=== PATIENT | male | born 1970 | race Caucasian/White ===

== ENCOUNTER 2018-10-14 08:39 | Emergency (ER) | payer OTHER ==
[~2018-10-14] VITALS: Ht 182.9 cm; Wt 77.1 kg
--- OUTSIDE RECORDS SUMMARY | 2018-10-14 08:42 | XMS REPORT | Clinical Summary ---
Author Author KALIN Lindsey ShellSt. Luke'[facility] CenterHealthyCh[facility] Organization [facility] Pinterest [facility] Address Unknown Phone Unavailable Care Team Providers Care [employer] Name Role Phone Alexx Brown PCP Allergies Comments Active Allergy Reactions Severity Noted Date Heparin 10/07/2017 HIT Heparin Analogues Other (See 10/08/2017 Comments) Medications End Date Status Medication Sig Dispensed Refills Start Date Active apixaban (ELIQUIS) 5 mg Take 5 mg by 0 Tab tablet mouth 2 (two) times daily. Active sacubitril-valsartan Take 1 tablet 0 (ENTRESTO) 24-26 mg Tab by mouth 2 (two) times daily. Active carvedilol (COREG) 3.125 Take 3.125 mg 0 MG tablet by mouth 2 (two) times daily with breakfast and dinner. Active esomeprazole (NEXIUM) 40 Take 40 mg by 0 MG capsule mouth daily. Active thiamine (VITAMIN B-1) Take 100 mg 0 100 MG tablet by mouth daily. Active diphenhydrAMINE Take 50 mg by 0 (BENADRYL) 25 mg tablet mouth 2 (two) times daily . Active buprenorphine-naloxone Place under 0 (SUBOXONE) 8-2 mg Film the tongue 3 (three) times daily. Active dextroamphetamine-ampheta Take 30 mg by 0 mine (ADDERALL XR) 30 MG mouth 2 (two) 24 hr capsule times daily. Active bumetanide (BUMEX) 1 MG Take 1 mg by 0 tablet mouth 2 (two) times daily. Active digoxin (LANOXIN) 0.25 MG Take 250 mcg 0 tablet by mouth daily. Active HYDROcodone-acetaminophen Take 1 tablet 0 (NORCO 5-325) 5-325 mg by mouth per tablet every 6 (six) hours as needed for Pain. 12/31/2017 Discontinued aspirin 81 MG EC tablet Take 81 mg by 0 mouth daily. 03/07/2018 Discontinued ALPRAZolam (XANAX) 0.25 Take 0.25 mg 0 MG tablet by mouth every night as needed for Anxiety. Active Problems Patient Care Coordination Note PT ID HPI PAST MEDICAL HISTORY PAST SURGICAL HISTORY SOCIAL HISTORY FAMILY HISTORY ALLERGIES MEDICATIONS PERTINENT TESTS/RESULTS ASSESSMENT/PLAN Problem Noted Date Acute on chronic systolic heart failure 10/10/2017 Leg DVT (deep venous thromboembolism), chronic, left 10/10/2017 Normocytic anemia 10/10/2017 Hypokalemia 10/10/2017 Acute kidney injury 10/10/2017 ADHD 10/10/2017 Acute respiratory insufficiency 10/10/2017 CHF (congestive heart failure) 10/08/2017 Encounters Care Team Description Date Type Specialty Raissa Wilson 06/06/2018 Documentation Transplant Jose R Bernard MD Fatigue, unspecified type (Primary Dx); Chronic systolic congestive heart failure (HCC); Normocytic anemia; Hypokalemia 03/07/2018 Office Visit Transplant 03/07/2018 Orders Only General Internal Medicine WilsonRaissa hrarell R 03/06/2018 Documentation Transplant Wilson, Elham 02/13/2018 Documentation Transplant WilsonRaissa harrell R 02/10/2018 Documentation Transplant Madiha Francisco Carlitos 01/16/2018 Abstract Transplant Amos Saavedra RN Follow-up 01/08/2018 Telephone Transplant Wilson Elham 01/06/2018 Documentation Transplant Amos Saavedra RN Follow-up 01/02/2018 Telephone Transplant Jose R Bernard MD Acute kidney injury (HCC) 12/31/2017 Office Visit Transplant Jose R Bernard MD Dilated cardiomyopathy (HCC); Systolic congestive heart failure (HCC) 12/31/2017 Hospital Cardiology Encounter Jose R Bernard MD Dilated cardiomyopathy (HCC) 12/31/2017 Hospital Cardiology Encounter Jose R Bernard MD Dilated cardiomyopathy (HCC); Systolic congestive heart failure (HCC) 12/31/2017 Hospital Cardiology Encounter Jose R Bernard MD Manson, Melissa J, [facility] Hazel Mayes, Amos Kirkland, Hazel Bowles, REGULATORY AFFAIRS INTERN Catia Matos, RD Kristel Magana Dilated cardiomyopathy (HCC); Systolic congestive heart failure (HCC) 12/31/2017 Office Visit Transplant 12/31/2017 Orders Only General Internal Medicine Amos Saavedra, SHARATH 12/31/2017 Abstract Transplant Hazel Parker, REGULATORY AFFAIRS INTERN 12/31/2017 Social Work Transplant Jose R Bernard MD 12/30/2017 Outside Orders Jose R Bernard MD Dilated cardiomyopathy (HCC); Systolic congestive heart failure, unspecified congestive heart failure chronicity (HCC) 11/29/2017 Hospital Respiratory Therapy Encounter Jose R Bernrad MD Dilated cardiomyopathy (HCC); Systolic congestive heart failure, unspecified congestive heart failure chronicity (HCC) 11/29/2017 Hospital Respiratory Therapy Encounter Jose R Bernard MD Chronic systolic congestive heart failure (HCC); Normocytic anemia; Hypokalemia 11/26/2017 Office Visit Transplant 11/26/2017 Orders Only General Internal Medicine Evelyn Pearza RN Chronic systolic congestive heart failure (HCC) (Primary Dx); Leg DVT (deep venous thromboembolism), chronic, left (HCC); Hypokalemia; Normocytic anemia 11/25/2017 Orders Only Transplant Jose R Bernard MD R CATH & BIOPSY 11/06/2017 Surgery Jose R Bernard MD Acute on chronic combined systolic and diastolic congestive heart failure (HCC) 11/06/2017 Hospital Encounter Jose R Bernard MD 11/06/2017 Orders Only Transplant Amos Saavedra, SHARATH Follow-up 10/23/2017 Telephone Transplant after 10/13/2017 Social History Date Tobacco Use Types Packs/Day Years Used Never Smoker Smokeless Tobacco: Never Used Tobacco Cessation: Counseling Given: No Alcohol Use Drinks/Week oz/Week Comments Yes occassionally Sex Assigned at Date Recorded Not on file Industry Job Start Date Occupation Not on file Not on file Not on file Travel End Travel History Travel Start No recent travel history available. Last Filed Vital Signs Time Taken Vital Sign Reading 03/07/2018 1:07 PM CDT Blood Pressure 120/77 03/07/2018 1:07 PM CDT Pulse 92 03/07/2018 1:07 PM CDT Temperature 36.3 C (97.3 F) 03/07/2018 1:07 PM CDT Respiratory Rate 16 03/07/2018 1:07 PM CDT Oxygen Saturation 98% - Inhaled Oxygen - Concentration 03/07/2018 1:07 PM CDT Weight 76.5 kg (168 lb 9.6 oz) 03/07/2018 1:07 PM CDT Height 175.3 cm (5' 9") 03/07/2018 1:07 PM CDT Body Mass Index 24.9 Plan of Treatment Health Maintenance Due Date Last Done Comments INFLUENZA VACCINE 06/09/2018 Procedures Comments Procedure Name Priority Date/Time Associated Diagnosis CORTISOL Routine 03/07/2018 Chronic systolic 3:27 PM CDT congestive heart failure (HCC) Fatigue, unspecified type VITAMIN B12 AND FOLATE STAT 03/07/2018 Chronic systolic 3:27 PM CDT congestive heart failure (HCC) Fatigue, unspecified type IRON, SERUM STAT 03/07/2018 Chronic systolic 3:27 PM CDT congestive heart failure (HCC) Fatigue, unspecified type CBC W/PLT COUNT & AUTO STAT 03/07/2018 Chronic systolic DIFFERENTIAL 1:16 PM CDT congestive heart failure (HCC) Normocytic anemia B-TYPE NATRIURETIC FACTOR STAT 03/07/2018 Chronic systolic (BNP) 1:16 PM CDT congestive heart failure (HCC) BASIC METABOLIC PANEL (7) STAT 03/07/2018 Chronic systolic 1:16 PM CDT congestive heart failure (HCC) Hypokalemia CBC W/PLT COUNT & AUTO STAT 03/07/2018 Chronic systolic DIFFERENTIAL 1:16 PM CDT congestive heart failure (HCC) Normocytic anemia ECG 12-LEAD Routine 03/07/2018 1:13 PM CDT Procedure Note - Interface, External Ris In - 03/07/2018 3:10 PM CDT Ventricula r Rate 91 BPM Atrial Rate 91 BPM P-R Interval 138 ms QRS Duration 98 ms Q-T Interval 408 ms QTC Calculatio n(Bazett) 501 ms P [place] 21 degrees R Cherokee -4 degrees T Cherokee 98 degrees Normal sinus rhythm Moderate voltage criteria for LVH, may be normal variant Nonspecifi c T wave abnormalit y Prolonged QT Abnormal ECG When compared with ECG of 8 15:26, T wave inversion no longer evident in Inferior leads QT has lengthened ECG 12-LEAD Routine 03/07/2018 Chronic systolic 1:13 PM CDT congestive heart failure (HCC) MAXIMAL VO2 CARDIOPULM STAT 01/08/2018 Dilated cardiomyopathy TEST - SLMT 1:08 PM CDT (HCC) Systolic congestive heart failure (HCC) TRANSFUSION SERVICE 01/01/2018 REPORT - SCAN 5:45 PM CDT PERIPHERAL VASCULAR 12/31/2017 REPORT - SCAN 6:20 PM CDT ARTERIAL DOPPLER LEGS Routine 12/31/2017 Dilated cardiomyopathy BILATERAL 5:15 PM CDT (HCC) Systolic congestive heart failure (HCC) ECG 12-LEAD Routine 12/31/2017 3:26 PM CDT Procedure Note - Interface, External Ris In - 12/31/2017 4:03 PM CDT Ventricula r Rate 77 BPM Atrial Rate 77 BPM P-R Interval 150 ms QRS Duration 104 ms Q-T Interval 384 ms QTC Calculatio n(Bazett) 434 ms P [place] 34 degrees R Cherokee 0 degrees T Cherokee 146 degrees Normal sinus rhythm Left ventricula r hypertroph y with repolariza tion abnormalit y Abnormal ECG When compared with ECG of 8 14:41, No significan t change was found ECG 12-LEAD Routine 12/31/2017 Dilated cardiomyopathy 3:26 PM CDT (HCC) Systolic congestive heart failure (HCC) CBC W/PLT COUNT & AUTO Routine 12/31/2017 Dilated cardiomyopathy DIFFERENTIAL 3:02 PM CDT (HCC) Systolic congestive heart failure (HCC) DIRECT AHG (DEZ)/DIRECT Routine 12/31/2017 Dilated cardiomyopathy YANELY 3:02 PM CDT (HCC) Systolic congestive heart failure (HCC) BLOOD TYPING, AUTOMATED Routine 12/31/2017 Dilated cardiomyopathy 3:02 PM CDT (HCC) Systolic congestive heart failure (HCC) RETICULOCYTE COUNT Routine 12/31/2017 Dilated cardiomyopathy 3:02 PM CDT (HCC) Systolic congestive heart failure (HCC) CBC W/PLT COUNT & AUTO Routine 12/31/2017 Dilated cardiomyopathy DIFFERENTIAL 3:02 PM CDT (HCC) Systolic congestive heart failure (HCC) B-TYPE NATRIURETIC FACTOR Routine 12/31/2017 Dilated cardiomyopathy (BNP) 3:02 PM CDT (HCC) Systolic congestive heart failure (HCC) HEPATITIS B CORE Routine 12/31/2017 Dilated cardiomyopathy ANTIBODY, IGM 3:01 PM CDT (HCC) Systolic congestive heart failure (HCC) FLOW PRA CLASS II WITH Routine 12/31/2017 Dilated cardiomyopathy REFLEX TO ANTIBODY 3:01 PM CDT (HCC) SPECIFICITY Systolic congestive heart failure (HCC) FLOW PRA CLASS I WITH Routine 12/31/2017 Dilated cardiomyopathy REFLEX TO ANTIBODY 3:01 PM CDT (HCC) SPECIFICITY Systolic congestive heart failure (HCC) VARICELLA ZOSTER Routine 12/31/2017 Dilated cardiomyopathy ANTIBODY, IGG 3:01 PM CDT (HCC) Systolic congestive heart failure (HCC) TOXOPLASMA GONDII Routine 12/31/2017 Dilated cardiomyopathy ANTIBODY, IGM 3:01 PM CDT (HCC) Systolic congestive heart failure (HCC) TOXOPLASMA GONDII Routine 12/31/2017 Dilated cardiomyopathy ANTIBODY, IGG 3:01 PM CDT (HCC) Systolic congestive heart failure (HCC) RPR Routine 12/31/2017 Dilated cardiomyopathy 3:01 PM CDT (HCC) Systolic congestive heart failure (HCC) HERPES VIRUS ANTIBODY, Routine 12/31/2017 Dilated cardiomyopathy IGM 3:01 PM CDT (HCC) Systolic congestive heart failure (HCC) HERPES VIRUS ANTIBODY, Routine 12/31/2017 Dilated cardiomyopathy IGG 3:01 PM CDT (HCC) Systolic congestive heart failure (HCC) EBV ANTIBODY, IGM Routine 12/31/2017 Dilated cardiomyopathy 3:01 PM CDT (HCC) Systolic congestive heart failure (HCC) EBV ANTIBODY, IGG Routine 12/31/2017 Dilated cardiomyopathy 3:01 PM CDT (HCC) Systolic congestive heart failure (HCC) CYTOMEGALOVIRUS ANTIBODY, Routine 12/31/2017 Dilated cardiomyopathy IGM 3:01 PM CDT (HCC) Systolic congestive heart failure (HCC) CYTOMEGALOVIRUS ANTIBODY, Routine 12/31/2017 Dilated cardiomyopathy IGG 3:01 PM CDT (HCC) Systolic congestive heart failure (HCC) VITAMIN D, 25-HYDROXY Routine 12/31/2017 Dilated cardiomyopathy 3:01 PM CDT (HCC) Systolic congestive heart failure (HCC) URIC ACID Routine 12/31/2017 Dilated cardiomyopathy 3:01 PM CDT (HCC) Systolic congestive heart failure (HCC) TSH Routine 12/31/2017 Dilated cardiomyopathy 3:01 PM CDT (HCC) Systolic congestive heart failure (HCC) TRANSFERRIN Routine 12/31/2017 Dilated cardiomyopathy 3:01 PM CDT (HCC) Systolic congestive heart failure (HCC) T4, FREE Routine 12/31/2017 Dilated cardiomyopathy 3:01 PM CDT (HCC) Systolic congestive heart failure (HCC) PSA Routine 12/31/2017 Dilated cardiomyopathy 3:01 PM CDT (HCC) Systolic congestive heart failure (HCC) PREALBUMIN Routine 12/31/2017 Dilated cardiomyopathy 3:01 PM CDT (HCC) Systolic congestive heart failure (HCC) PHOSPHORUS Routine 12/31/2017 Dilated cardiomyopathy 3:01 PM CDT (HCC) Systolic congestive heart failure (HCC) MAGNESIUM Routine 12/31/2017 Dilated cardiomyopathy 3:01 PM CDT (HCC) Systolic congestive heart failure (HCC) LIPASE Routine 12/31/2017 Dilated cardiomyopathy 3:01 PM CDT (HCC) Systolic congestive heart failure (HCC) LACTATE DEHYDROGENASE Routine 12/31/2017 Dilated cardiomyopathy (LDH) 3:01 PM CDT (HCC) Systolic congestive heart failure (HCC) IRON, SERUM Routine 12/31/2017 Dilated cardiomyopathy 3:01 PM CDT (HCC) Systolic congestive heart failure (HCC) HEPATITIS A ANTIBODY, IGM Routine 12/31/2017 Dilated cardiomyopathy 3:01 PM CDT (HCC) Systolic congestive heart failure (HCC) HEPATITIS A ANTIBODY, IGG Routine 12/31/2017 Dilated cardiomyopathy 3:01 PM CDT (HCC) Systolic congestive heart failure (HCC) HEPATIC FUNCTION PANEL Routine 12/31/2017 Dilated cardiomyopathy 3:01 PM CDT (HCC) Systolic congestive heart failure (HCC) GAMMA GLUTAMYL Routine 12/31/2017 Dilated cardiomyopathy TRANSFERASE (GGT) 3:01 PM CDT (HCC) Systolic congestive heart failure (HCC) CREATININE Routine 12/31/2017 Dilated cardiomyopathy 3:01 PM CDT (HCC) Systolic congestive heart failure (HCC) BASIC METABOLIC PANEL (7) Routine 12/31/2017 Dilated cardiomyopathy 3:01 PM CDT (HCC) Systolic congestive heart failure (HCC) AMYLASE Routine 12/31/2017 Dilated cardiomyopathy 3:01 PM CDT (HCC) Systolic congestive heart failure (HCC) HEPATITIS B E ANTIGEN Routine 12/31/2017 Dilated cardiomyopathy 3:00 PM CDT (HCC) Systolic congestive heart failure (HCC) PT/APTT Routine 12/31/2017 Dilated cardiomyopathy 2:59 PM CDT (HCC) Systolic congestive heart failure (HCC) URINALYSIS W/ MICROSCOPIC Routine 12/31/2017 Dilated cardiomyopathy 12:58 PM CDT (HCC) Systolic congestive heart failure (HCC) DRUG SCREEN, URINE, Routine 12/31/2017 Dilated cardiomyopathy COMPREHENSIVE 12:58 PM CDT (HCC) Systolic congestive heart failure (HCC) PULMONARY FUNCTION - SCAN 12/02/2017 8:12 AM CDT DLCO (SINGLE BREATH Routine 11/29/2017 Dilated cardiomyopathy DIFFUSION) 10:04 AM CDT (HCC) Systolic congestive heart failure, unspecified congestive heart failure chronicity (HCC) SPIROMETRY Routine 11/29/2017 Dilated cardiomyopathy 10:04 AM CDT (HCC) Systolic congestive heart failure, unspecified congestive heart failure chronicity (HCC) CBC W/PLT COUNT & AUTO STAT 11/26/2017 Chronic systolic DIFFERENTIAL 2:44 PM CDT congestive heart failure (HCC) Normocytic anemia TSH/FREE T4 IF INDICATED STAT 11/26/2017 Chronic systolic 2:44 PM CDT congestive heart failure (HCC) MAGNESIUM STAT 11/26/2017 Chronic systolic 2:44 PM CDT congestive heart failure (HCC) HEMOGLOBIN A1C AP Routine 11/26/2017 Chronic systolic 2:44 PM CDT congestive heart failure (HCC) PREALBUMIN STAT 11/26/2017 Chronic systolic 2:44 PM CDT congestive heart failure (HCC) URIC ACID STAT 11/26/2017 Chronic systolic 2:44 PM CDT congestive heart failure (HCC) PROTHROMBIN TIME/INR STAT 11/26/2017 Chronic systolic 2:44 PM CDT congestive heart failure (HCC) LIPID PANEL STAT 11/26/2017 Chronic systolic 2:44 PM CDT congestive heart failure (HCC) HEPATIC FUNCTION PANEL STAT 11/26/2017 Chronic systolic 2:44 PM CDT congestive heart failure (HCC) B-TYPE NATRIURETIC FACTOR STAT 11/26/2017 Chronic systolic (BNP) 2:44 PM CDT congestive heart failure (HCC) BASIC METABOLIC PANEL (7) STAT 11/26/2017 Chronic systolic 2:44 PM CDT congestive heart failure (HCC) Hypokalemia CBC W/PLT COUNT & AUTO STAT 11/26/2017 Chronic systolic DIFFERENTIAL 2:44 PM CDT congestive heart failure (HCC) Normocytic anemia ECG 12-LEAD Routine 11/26/2017 2:41 PM CDT Procedure Note - Interface, External Ris In - 11/26/2017 4:10 PM CDT Ventricula r Rate 76 BPM Atrial Rate 76 BPM P-R Interval 168 ms QRS Duration 104 ms Q-T Interval 346 ms QTC Calculatio n(Bazett) 389 ms P [place] 17 degrees R Cherokee 13 degrees T [place] 182 degrees Normal sinus rhythm Left ventricula r hypertroph y with repolariza tion abnormalit y Abnormal ECG When compared with ECG of 8 18:41, QT has shortened ECG 12-LEAD Routine 11/26/2017 Chronic systolic 2:41 PM CDT congestive heart failure (HCC) CARDIAC CATH REPORT - 11/10/2017 SCAN 4:31 PM LEAD INJECTION MOLD TECHNICIAN TISSUE EXAM AP Routine 11/06/2017 7:57 PM LEAD INJECTION MOLD TECHNICIAN R CATH & BIOPSY 11/06/2017 CHF 4:52 PM LEAD INJECTION MOLD TECHNICIAN Case Notes POP6. 838mGy CBC W/PLT COUNT & AUTO STAT 11/06/2017 DIFFERENTIAL 1:23 PM LEAD INJECTION MOLD TECHNICIAN CBC W/PLT COUNT & AUTO STAT 11/06/2017 DIFFERENTIAL 1:23 PM LEAD INJECTION MOLD TECHNICIAN BASIC METABOLIC PANEL (7) STAT 11/06/2017 1:23 PM LEAD INJECTION MOLD TECHNICIAN B-TYPE NATRIURETIC FACTOR STAT 11/06/2017 (BNP) 1:23 PM LEAD INJECTION MOLD TECHNICIAN LIPID PANEL Routine 11/06/2017 1:23 PM LEAD INJECTION MOLD TECHNICIAN HEPATIC FUNCTION PANEL Routine 11/06/2017 1:23 PM LEAD INJECTION MOLD TECHNICIAN RHYTHM STRIP - SCAN 10/23/2017 11:11 AM LEAD INJECTION MOLD TECHNICIAN CARDIAC CATH REPORT - 10/14/2017 SCAN 9:30 PM LEAD INJECTION MOLD TECHNICIAN RHYTHM STRIP - SCAN 10/14/2017 11:00 AM LEAD INJECTION MOLD TECHNICIAN after 10/13/2017 Results * Cortisol (03/07/2018 3:27 PM CDT) Cortisol, Total 11.1 3.7 - 19.4 ug/dL [facility] Specimen Blood Performing Organization Address City/State/Zipcode Phone Number [facility] [address] [place] [address] [facility] * Vitamin B12 and Folate (03/07/2018 3:27 PM CDT) Vitamin B12 285 213 - 816 pg/mL [facility] Folate 10.2 >=7.0 ng/mL [facility] Specimen Blood Performing Organization Address City/State/Zipcode Phone Number [facility] [address] [place] [address] [facility] * Iron, serum (03/07/2018 3:27 PM CDT) Only the most recent of 2 results within the time period is included. Iron 38 (L) 40 - 160 ug/dL [facility] Specimen Blood Performing Organization Address City/[facility]/Zipcode Phone Number [facility] [address] [place] [address] [facility] * CBC with platelet count + automated diff (03/07/2018 1:16 PM CDT) Only the most recent of 4 results within the time period is included. WBC 5.1 3.5 - 10.5 K/L [facility] RBC 4.23 (L) 4.63 - 6.08 M/L [facility] Hemoglobin 12.0 (L) 13.7 - 17.5 GM/DL [facility] Hematocrit 37.4 (L) 40.1 - 51.0 % [facility] MCV 88.4 79.0 - 92.2 fL [facility] MCH 28.4 25.7 - 32.2 pg [facility] MCHC 32.1 (L) 32.3 - 36.5 GM/DL [facility] RDW 13.1 11.6 - 14.4 % [facility] Platelets 229 150 - 450 K/CU MM [facility] MPV 12.1 9.4 - 12.4 fL [facility] nRBC 0 0 - 0 /100 WBC [facility] % Neutros 58 % [facility] % Lymphs 27 % [facility] % Monos 12 % [facility] % Eos 3 % [facility] % Baso 0 % [facility] # Neutros 2.97 1.78 - 5.38 K/L [facility] # Lymphs 1.40 1.32 - 3.57 K/L [facility] # Monos 0.59 0.30 - 0.82 K/L [facility] # Eos 0.13 0.04 - 0.54 K/L [facility] # Baso 0.02 0.01 - 0.08 K/L [facility] Immature 0 0 - 1 % [facility] Granulocytes-[facility] Specimen Blood Performing Organization Address City/State/[place] [address] [facility] * B N P (03/07/2018 1:16 PM CDT) Only the most recent of 4 results within the time period is included. BNP 454 (H) 0 - 100 pg/mL [facility] Specimen Blood Performing Organization Address City/[facility]/[place] [address] [facility] * Basic Metabolic Panel (03/07/2018 1:16 PM CDT) Only the most recent of 4 results within the time period is included. Sodium 140 136 - 145 meq/L [facility] Potassium 3.4 (L) 3.5 - 5.1 meq/L [facility] Chloride 102 98 - 107 meq/L [facility] CO2 30 (H) 22 - 29 meq/L [facility] BUN 17 7 - 21 mg/dL [facility] Creatinine 1.45 (H) 0.57 - 1.25 mg/dL [facility] Glucose 72 70 - 105 mg/dL [facility] Calcium 9.1 8.4 - 10.2 mg/dL [facility] EGFR 53Comment: ESTIMATED GFR IS mL/min/1.73 sq m [facility] NOT ACCURATE CREATININE [facility] CLEARANCE IN PREDICTING GLOMERULAR FILTRATION RATE. ESTIMATED GFR IS NOT APPLICABLE FOR DIALYSIS PATIENTS. Specimen Blood Performing Organization Address City/[facility]/Zipcode Phone Number [facility] [address] [place] [address] [facility] * ECG 12 lead (03/07/2018 1:13 PM CDT) Only the most recent of 3 results within the time period is included. Narrative Performed At Ventricular Rate 91 BPM GE MUSE Atrial Rate 91 BPM P-R Interval 138 ms QRS Duration 98 ms Q-T Interval 408 ms QTC Calculation(Bazett) 501 ms P [place] 21 degrees R Cherokee -4 degrees T [place] 98 degrees Normal sinus rhythm Moderate voltage criteria for LVH, may be normal variant Nonspecific T wave abnormality Prolonged QT Abnormal ECG When compared with ECG of 31-DEC-2017 15:26, T wave inversion no longer evident in Inferior leads QT has lengthened Confirmed by MD Gomez Mahboob ([id number]) on 03/08/2018 1:10:38 PM Procedure Note Interface, External Ris In - 03/08/2018 1:10 PM CDT Ventricular Rate 91 BPM Atrial Rate 91 BPM P-R Interval 138 ms QRS Duration 98 ms Q-T Interval 408 ms QTC Calculation(Bazett) 501 ms P [place] 21 degrees R [place] -4 degrees T [place] 98 degrees Normal sinus rhythm Moderate voltage criteria for LVH, may be normal variant Nonspecific T wave abnormality Prolonged QT Abnormal ECG When compared with ECG of 31-DEC-2017 15:26, T wave inversion no longer evident in Inferior leads QT has lengthened Confirmed by MD Gomez Mahboob ([id number]) on 03/08/2018 1:10:38 PM Performing Organization Address City/[facility]/Zipcode Phone Number [employer] * MVO2 - SLMT (MAXIMAL VO2 CARDIOPULM TEST) (01/08/2018 1:08 PM CDT) Narrative Performed At Performing Organization Address City/State/Zipcode Phone Number [facility] * TRANSFUSION SERVICE REPORT - SCAN (01/01/2018 5:45 PM CDT) Narrative Performed At * PERIPHERAL VASCULAR REPORT - SCAN (12/31/2017 6:20 PM CDT) Narrative Performed At * Arterial doppler legs bilateral (12/31/2017 5:15 PM CDT) Ejection Fraction [facility] MKCKESSON CPACS Impressions Performed At Right Impression [facility] 1. The posterior tibial and dorsalis pedis arteries are patent with normal MKCKESSON CPACS triphasic Doppler waveforms. 2. The PT pressure is 125 mmHg with an LORETTA of 0.99 and the DP pressure is 122 mmHg with an LORETTA of 0.97, within normal range. 3. The great toe pressure is 73 mmHg with an abnormal TBI of 0.58. 4. The digits have diminished flow by PPG waveforms. Left Impression 1. The posterior tibial and dorsalis pedis arteries are patent with normal triphasic Doppler waveforms. 2. The PT pressure is 139 mmHg with an LORETTA of 1.10 and the DP pressure is 136 mmHg with an LORETTA of 1.08, within normal range. 3. The great toe pressure is 68 mmHg with an abnormal TBI of 0.54. 4. The digits have diminished flow by PPG waveforms. Conclusions Summary Arterial pressures and Doppler waveforms were performed bilaterally. Adequate Doppler waveforms were obtained. Doppler waveforms were triphasic with normal flow bilaterally. The right and left LORETTA's were within normal range. The toe pressure and TBI's were within an abnormal range bilaterally. The digits had diminished flow by PPG waveforms bilaterally. Signature Velocities are measured in cm/s ; Diameters are measured in cm Narrative Performed At PV LAB - Lower Extremity Arterial Procedure [facility] Demographics [place] [facility] [facility] Patient Name Janett JERONIMO of Study 12/31/2017 TOMY [id number] Age 47 Visit Number [id number] GenderMale Accession Number [id number] Date of 1970 ReferringNair Jose R Torres Number [facility] OPT Physician Sophy Lopes InterpretingJ. Ab Griffith MD, RVSPhysician RPVI Procedure Type of Study: Extremities Arteries: Lower Extremity Arterial Procedure, ARTERIAL (LORETTA'S W/DOPPLER) ONLY. Indications for Study:Heart transplant evaluation . Patient Status:Routine. Study Location:Vascular Lab. Technical Quality:Adequate visualization. Risk Factors History of Disease + + + + !Diagnosis !Date!Comments ! + + + + !History/Risk!12/31/2017!CHF, Previous history of left leg chronic ! !Factors:!!DVT 09/2016, ADHD! + + + + Procedure Note Interface, External Ris In - 12/31/2017 5:40 PM CDT [facility] - Lower Extremity Arterial Procedure Demographics Patient Name KELLEN JERONIMO Date of Study 12/31/2017 TOMY Age 47 Visit Number [id number] Gender Male Accession Number [id number] Date of 1970 Referring Joana Odell MD Room Number [facility] OPT Physician Trapper Animal Emile Lopes Interpreting Harper Griffith MD, RVS Physician RPVI Procedure Type of Study: Extremities Arteries: Lower Extremity Arterial Procedure, ARTERIAL (LORETTA'S W/DOPPLER) ONLY. Indications for Study:Heart transplant evaluation . Patient Status:Routine. Study Location:Vascular Lab. Technical Quality:Adequate visualization. Risk Factors History of Disease + + + + !Diagnosis !Date !Comments ! + + + + !History/Risk !12/31/2017!CHF, Previous history of left leg chronic ! !Factors: ! !DVT 09/2016, ADHD ! + + + + Impressions Right Impression 1. The posterior tibial and dorsalis pedis arteries are patent with normal triphasic Doppler waveforms. 2. The PT pressure is 125 mmHg with an LORETTA of 0.99 and the DP pressure is 122 mmHg with an LORETTA of 0.97, within normal range. 3. The great toe pressure is 73 mmHg with an abnormal TBI of 0.58. 4. The digits have diminished flow by PPG waveforms. Left Impression 1. The posterior tibial and dorsalis pedis arteries are patent with normal triphasic Doppler waveforms. 2. The PT pressure is 139 mmHg with an LORETTA of 1.10 and the DP pressure is 136 mmHg with an LORETTA of 1.08, within normal range. 3. The great toe pressure is 68 mmHg with an abnormal TBI of 0.54. 4. The digits have diminished flow by PPG waveforms. Conclusions Summary Arterial pressures and Doppler waveforms were performed bilaterally. Adequate Doppler waveforms were obtained. Doppler waveforms were triphasic with normal flow bilaterally. The right and left LORETTA's were within normal range. The toe pressure and TBI's were within an abnormal range bilaterally. The digits had diminished flow by PPG waveforms bilaterally. Signature Velocities are measured in cm/s ; Diameters are measured in cm Performing Organization Address City/[facility] Phone Number [facility] [place] [employer] * Blood typing, automated (12/31/2017 3:02 PM CDT) ABO/RH AUTOMATED (BEAKER) AB NEGATIVE [facility] Specimen Blood Performing Organization Address City/[facility]/Zipcode Phone Number [facility] [address] [place] [address] [facility] * Reticulocytes (12/31/2017 3:02 PM CDT) % Retic 1.3 0.5 - 1.8 % [facility] Specimen Blood Performing Organization Address City/[facility] Cent[facility] Phone Number [id number] [place] [address] [phone] [address] * Direct Yanely (12/31/2017 3:02 PM CDT) Direct AHG-IGG NEGATIVE [facility] Direct AHG-C3B, C3D NEGATVIE [facility] Specimen Blood Performing Organization Address City/[facility] Cent[facility]ode Phone Number [id number] [place] [address] [phone] [address] * FLOW PRA CLASS II WITH REFLEX TO ANTIBODY SPECIFICITY (12/31/2017 3:01 PM CDT) Flow Class II Percent 0 [facility] Positive Flow Class Report [facility] Comments Specimen Blood Performing Organization Address [facility] Phone Number [facility] ONE [facility] [place], [address]: [id number], [place] [address] CLIA#[id number] CAP#[id number] UNOS#[id number] [facility] ONE [facility] [place], [address]: [id number] [place] [address] * FLOW PRA CLASS I WITH REFLEX TO ANTIBODY SPECIFICITY (12/31/2017 3:01 PM CDT) Flow Class I Percent 0 [facility] Positive Flow Class Report [facility] Comments Specimen Blood Performing Organization Address [facility] Phone Number [facility] ONE [facility] [place], [address]: [id number], [place] [address] CLIA#[id number] CAP#[id number] UNOS#[id number] [facility] ONE [facility] [place], [place]: [id number] [place] [address] * Hepatitis A antibody, IgG (12/31/2017 3:01 PM CDT) Hep A IgG Nonreactive Nonreactive [facility] Specimen Blood Performing Organization Address [facility] Cent[facility]ode Phone Number [address] [address] [phone] [place] [address] * CMV antibody, IgM (12/31/2017 3:01 PM CDT) CMV IgM Negative [facility] Specimen Blood Performing Organization Address City/[facility] Phone Number [phone] [place] [address] [phone] [address] * Hepatitis A antibody, IgM (12/31/2017 3:01 PM CDT) Hep A IgM HEPATITIS A TEST NEGATIVE Nonreactive [facility] Specimen Blood Performing Organization Address City/State/Zipcode Phone Number [phone] [place] [address] * Toxoplasma gondii antibody, IgM (12/31/2017 3:01 PM CDT) Toxoplasma gondii IgM Negative [facility] Specimen Blood Performing Organization Address City/[facility]/Zipcode Phone Number [address] * Herpes virus, IgM (12/31/2017 3:01 PM CDT) Herpes Virus IGM Negative [facility] Specimen Blood Narrative Performed At Performing Organization Address City/[facility] Cent[facility] Phone Number [phone] [place] [address] * Hepatitis B core antibody, IgM (12/31/2017 3:01 PM CDT) Hep B C IgM NON-REACTIVE Nonreactive [facility] Specimen Blood Performing Organization Address City/[facility]/Zipcode Phone Number [phone] [place] [address] [phone] [address] * EBV-VCA antibody, IgM (12/31/2017 3:01 PM CDT) EBV VCA IgM Negative [facility] Specimen Blood Performing Organization Address City/[facility]/Zipcode Phone Number [address] * EBV-VCA antibody, IgG (12/31/2017 3:01 PM CDT) EBV VCA IgG Positive [facility] Specimen Blood Performing Organization Address City/State/[facility] Cent[facility]ode Phone Number [address] * Vitamin D, 25-Hydroxy (12/31/2017 3:01 PM CDT) Vitamin D 25-Hydroxy 23.5 6.6 - 49.9 ng/mL [facility] Specimen Blood Narrative Performed At Effective 06/19/2017: Reference Range Change [facility] New: 6.6-49.9 ng/mL Previous: 13.0-47.8 ng/mL [facility] Recommended Vitamin D Target Range: 30.0-40.0 ng/mL Performing Organization Address City/[facility] Cent[facility]ode Phone Number [address] * Herpes virus, IgG (12/31/2017 3:01 PM CDT) Herpes Virus IGG Positive [facility] Specimen Blood Narrative Performed At HSV IgG 1=NEGATIVE [facility] HSV IgG 2=POSITIVE [facility] Performing Organization Address City/[facility] Centercode Phone Number [address] * Toxoplasma gondii antibody, IgG (12/31/2017 3:01 PM CDT) Toxoplasma gondii IgG Negative [facility] Specimen Blood Performing Organization Address City/[facility]/Zipcode Phone Number [address] * RPR (12/31/2017 3:01 PM CDT) RPR Nonreactive Nonreactive [facility] Specimen Blood Performing Organization Address City/[facility]/Zipcode Phone Number [address] * CMV antibody, IgG (12/31/2017 3:01 PM CDT) CMV IgG Negative [facility] Specimen Blood Performing Organization Address City/[facility] Phone Number [address] * Varicella zoster antibody, IgG (12/31/2017 3:01 PM CDT) Varicella IgG 3.8 Al [facility] Specimen Blood Narrative Performed At VARICELLA ZOSTER RESULT INTERPRETATIONS: [facility] <=0.8 AlNonreactive:Presumed non-immune to VZV [facility] 0.9-1.0 AlEquivocal >=1.1 AlReactive:Presumed immune to VZV Performing Organization Address City/[facility] Centercomd Phone Number [address] * Uric acid (12/31/2017 3:01 PM CDT) Only the most recent of 2 results within the time period is included. Uric Acid 7.1 2.6 - 7.2 mg/dL [facility] Specimen Blood Performing Organization Address City/[facility] Phone Number [address] * Transferrin (12/31/2017 3:01 PM CDT) Transferrin 362 174 - 382 mg/dL [facility] Specimen Blood Performing Organization Address City/[facility] Phone Number [address] * TSH (12/31/2017 3:01 PM CDT) TSH 2.54 0.35 - 4.94 uIU/mL [facility] Specimen Blood Performing Organization Address City/[facility] Phone Number [address] * T4, free (12/31/2017 3:01 PM CDT) Free T4 0.97 0.70 - 1.48 ng/dL [facility] Specimen Blood Performing Organization Address City/[facility] Cent[facility]ode Phone Number [place] [phone] [place] [address] * PSA (12/31/2017 3:01 PM CDT) PSA 0.7 0.0 - 4.0 ng/mL [facility] Specimen Blood Performing Organization Address City/[facility] [place] [address] [phone] [place] [address] * Prealbumin (12/31/2017 3:01 PM CDT) Only the most recent of 2 results within the time period is included. Prealbumin 25 14 - 45 mg/dL [facility] Specimen Blood Performing Organization Address [facility] Center[facility] Phone Number [address] * Phosphorus (12/31/2017 3:01 PM CDT) Phosphorus 3.5 2.3 - 4.7 mg/dL [facility] Specimen Blood Performing Organization Address [facility] Phone Number [place] [phone] [place] [address] * Magnesium (12/31/2017 3:01 PM CDT) Only the most recent of 2 results within the time period is included. Magnesium 1.9 1.6 - 2.6 mg/dL [facility] Specimen Blood Performing Organization Address City/[facility] [place] [address] [phone] [place] [address] * Lipase (12/31/2017 3:01 PM CDT) Lipase 43 8 - 78 U/L [facility] Specimen Blood Performing Organization Address City/[facility] [place] [address] [facility] * Lactate dehydrogenase (LDH) (12/31/2017 3:01 PM CDT) LDH 271 (H) 125 - 220 U/L [facility] Specimen Blood Performing Organization Address City/[facility]/Zipcode Phone Number [place] [phone] * Gamma Glutamyl Transferase (GGT) (12/31/2017 3:01 PM CDT) GGT 38 9 - 64 U/L [facility] Specimen Blood Performing Organization Address City/[facility]/Zipcode Phone Number [address] * Creatinine (12/31/2017 3:01 PM CDT) Creatinine 1.32 (H) 0.57 - 1.25 mg/dL [facility] EGFR 59Comment: ESTIMATED GFR IS mL/min/1.73 sq m [facility] NOT ACCURATE CREATININE [facility] CLEARANCE IN PREDICTING GLOMERULAR FILTRATION RATE. ESTIMATED GFR IS NOT APPLICABLE FOR DIALYSIS PATIENTS. Specimen Blood Performing Organization Address [facility] Cent[facility]ode Phone Number [address] * Amylase (12/31/2017 3:01 PM CDT) Amylase 58 25 - 125 U/L [facility] Specimen Blood Performing Organization Address City/[facility]/[place] [address] [phone] [place] [address] * Hepatic function panel (Liver Panel) (12/31/2017 3:01 PM CDT) Only the most recent of 3 results within the time period is included. Protein, Total 7.6 6.0 - 8.3 gm/dL [facility] Albumin 4.4 3.5 - 5.0 g/dL [facility] Total Bilirubin 0.3 0.2 - 1.2 mg/dL [facility] Bilirubin, Direct 0.1 0.1 - 0.5 mg/dL [facility] Alkaline Phosphatase 76 40 - 150 U/L [facility] AST 22 5 - 34 U/L [facility] ALT 15 6 - 55 U/L [facility] Specimen Blood Performing Organization Address City/State/Zipcode Phone Number [facility] [address] [place] [address] [facility] * Hepatitis B e antigen (12/31/2017 3:00 PM CDT) Hep Be Ag (Antigen) NONREACTIVEComment: REFERENCE [facility] RANGES: NONREACTIVE INCORPORATED Specimen Blood Narrative Performed At Performing Lab [facility] *[facility] [address] [place] [address] Sheila Helms MD Performing Organization Address City/[facility] Centercode Phone Number [facility], [address] [place], [place] INCORPORATED [facility] [address] * PT/PTT (12/31/2017 2:59 PM CDT) Protime 14.5 11.7 - 14.7 seconds [facility] INR 1.1 <=5.9 [facility] PTT 28.4 22.5 - 36.0 seconds [facility] Specimen Blood Narrative Performed At RECOMMENDED COUMADIN/WARFARIN INR THERAPY RANGES [facility] STANDARD DOSE: 2.0 - 3.0 Includes: PROPHYLAXIS for venous thrombosis, [facility] systemic embolization; TREATMENT for venous thrombosis and/or pulmonary embolus. HIGH RISK: Target INR is 2.5-3.5 for patients with mechanical heart valves. Performing Organization Address City/State/Zipcode Phone Number [facility] [address] [place] [address] [facility] * Drug screen, urine, comprehensive (12/31/2017 12:58 PM CDT) Specimen Urine Narrative Performed At Performing Organization Address City/State/Zipcode Phone Number [facility] [address] [place] [address] * Urinalysis w/Microscopic (12/31/2017 12:58 PM CDT) Color, UA Light Yellow [facility] Clarity, UA Clear [facility] Specific [place], UA 1.007 1.001 - 1.035 [facility] pH, UA 6.0 5.0 - 8.0 [facility] Protein, UA Negative Negative [facility] Glucose, UA Negative Negative [facility] Ketones, UA Negative Negative [facility] Bilirubin, UA Negative Negative [facility] Blood, UA Negative Negative [facility] Nitrite, UA Negative Negative [facility] Leukocytes, UA Negative Negative [facility] Urobilinogen, UA 0.2 0.2 - 1.0 mg/dL [facility] RBC, UA 0 /HPF [facility] WBC, UA 1 /HPF [facility] Mucus Rare [facility] Hyaline Casts, UA 21 /LPF [facility] Specimen Source [facility] Specimen Urine Performing Organization Address City/State/Zipcode Phone Number [facility] [address] [place] [address] [facility] * PULMONARY FUNCTION - SCAN (12/02/2017 8:12 AM CDT) Narrative Performed At * Spirometry wo bronchodilator (11/29/2017 10:04 AM CDT) Narrative Performed At Charlie Cisneros, ИВАН, FINANCIAL SYSTEMS MANAGER 11/29/2017 10:04 AM [facility] PFT CHARTING REPORT Infection Control/Hand Hygiene procedures followed throughout the encounter with patient: Yes Patient Identification Method: Patient name verified on armband, and Medical record on armband, Is the order complete?: Yes Account ID#: [id number] Patient Name: Kellen Jeronimo Birthdate: 1970 Age: 47 y.o.Sex: male Admission Date: 11/29/2017Patient Status: Outpatient Reasons/Symptom for having the Test?: other diagnosis/symptoms as noted Type of study/treatment ordered by physician: Single Breath DLCO and Spirometry Lab Results Component Value Date HGB 13.7 11/26/2017 Ranges: Adult Male 13 - 16.8 g/dlAdult Female 12 - 15 g/dl 6 Minute Walk (read only) 11/06/2017 11/06/2017 11/26/2017 Pulse 80 81 84 SpO2 97 98 100 Study Date: 11/29/17tudy Time: 931 ASSESSMENT History & Physical Mode of Arrival: Ambulatory Pulse: 76Resp: 16SPO2: 98 %on ra Pain Assessment Pain:None TESTING/THERAPEUTICS Medications ordered or required for procedure: N/A PT EDUCATION/INSTRUCTIONS Barriers to learning: No known barriers to learning. Learning need identified: Yes, Patient/Family/Guradian was informed of the ordered study by the physician Barriers to performing study or treatment: Patient has no known disability to perform the study or treatment. DISCHARGE The study was completed in accordance with the physician's order and patient released from the lab without adverse outcome. * DLCO (single breath diffusion) (11/29/2017 10:04 AM CDT) Narrative Performed At Charlie Cisneros, ИВАН, FINANCIAL SYSTEMS MANAGER 11/29/2017 10:04 AM [facility] PFT CHARTING REPORT Infection Control/Hand Hygiene procedures followed throughout the encounter with patient: Yes Patient Identification Method: Patient name verified on armband, and Medical record on armband, Is the order complete?: Yes Account ID#: [id number] Patient Name: Kellen Jeronimo Birthdate: 1970 Age: 47 y.o.Sex: male Admission Date: 11/29/2017Patient Status: Outpatient Reasons/Symptom for having the Test?: other diagnosis/symptoms as noted Type of study/treatment ordered by physician: Single Breath DLCO and Spirometry Lab Results Component Value Date HGB 13.7 11/26/2017 Ranges: Adult Male 13 - 16.8 g/dlAdult Female 12 - 15 g/dl 6 Minute Walk (read only) 11/06/2017 11/06/2017 11/26/2017 Pulse 80 81 84 SpO2 97 98 100 Study Date: 11/29/17tudy Time: 931 ASSESSMENT History & Physical Mode of Arrival: Ambulatory Pulse: 76Resp: 16SPO2: 98 %on ra Pain Assessment Pain:None TESTING/THERAPEUTICS Medications ordered or required for procedure: N/A PT EDUCATION/INSTRUCTIONS Barriers to learning: No known barriers to learning. Learning need identified: Yes, Patient/Family/Guradian was informed of the ordered study by the physician Barriers to performing study or treatment: Patient has no known disability to perform the study or treatment. DISCHARGE The study was completed in accordance with the physician's order and patient released from the lab without adverse outcome. * TSH/Free T4 If Indicated (11/26/2017 2:44 PM CDT) TSH 1.06 0.35 - 4.94 uIU/mL [facility] Specimen Blood Performing Organization Address City/[facility] Phone Number [address] [address] [facility] * Protime-INR (11/26/2017 2:44 PM CDT) Protime 15.3 (H) 11.7 - 14.7 seconds [facility] INR 1.2 <=5.9 [facility] Specimen Blood Narrative Performed At RECOMMENDED COUMADIN/WARFARIN INR THERAPY RANGES [facility] STANDARD DOSE: 2.0 - 3.0 Includes: PROPHYLAXIS for venous thrombosis, [facility] systemic embolization; TREATMENT for venous thrombosis and/or pulmonary embolus. HIGH RISK: Target INR is 2.5-3.5 for patients with mechanical heart valves. Performing Organization Address City/[facility] Cent[facility]ode Phone Number [address] [address] [facility] * HGB A1C W EAG ESTIMATION (11/26/2017 2:44 PM CDT) Hemoglobin A1C 6.0 4.3 - 6.1 % [facility] Specimen Blood Performing Organization Address City/[facility] Centercode Phone Number [facility] [address] [place] [address] [phone] * Lipid panel (11/26/2017 2:44 PM CDT) Only the most recent of 2 results within the time period is included. Triglycerides 168 mg/dL [facility] Cholesterol 201 mg/dL [facility] HDL 55 mg/dL [facility] LDL Calculated 112 mg/dL [facility] Specimen Blood Narrative Performed At Triglyceride Reference Range: [facility] Low Risk <150 [facility] [id number] High Risk 200-499 Very High Risk>=500 Cholesterol Reference Range: Low Risk <200 Olzageeuuw773-496 High Risk>240 HDL Cholesterol Reference Range: Low Risk >=60 High Risk <40 LDL Cholesterol Reference Range: Optimal<100 Near Lpicczp915-335 Dpuhinuijh477-655 Hxqw059-122 Very High >=190 Performing Organization Address City/[facility] Cent[facility] Phone Number [facility] [address] [place] [address] [facility] * CARDIAC CATH REPORT - SCAN (11/10/2017 4:31 PM LEAD INJECTION MOLD TECHNICIAN) Narrative Performed At * Tissue Exam (11/06/2017 7:57 PM LEAD INJECTION MOLD TECHNICIAN) Case Report Surgical Path[facility] Case: [id number] Authorizing Provider:Jose R Bernard MD Collected: 11/06/2017 1957 Ordering Location: [facility] PHP MYSQL DEVELOPER SERVICESReceived: 11/07/2017 0751 Pathologist: Juan Luis Mcadams MD Specimen:Heart, RV x3 in formulin. exclude infiltrated cardiomyopathy ADDENDUM Perls iron stain does not [facility] demonstrate abnormal iron [facility] accumulation. Trichrome stain highlights mild to moderately increased interstitial fibrosis. Additional CPT codes: 41595l1 DIAGNOSIS PART A RIGHT CARDIAC [facility] VENTRICLE, ENDOMYOCARDIAL [facility] BIOPSY: MYOCARDIUM WITH MILD MYOCYTE HYPERTROPHIC FEATURES. [place] RED STAIN FOR AMYLOID IS NEGATIVE. Signing Pathologist Direct Phone Line: [phone] CPT Code(s) 51741, 92993 [facility] CLINICAL HISTORY CHF, exclude infiltrated [facility] cardiomyopathy [facility] SPECIMEN SOURCE Right ventricle x3 [facility] GROSS DESCRIPTION Specimen is received in a [facility] single container of formalin [facility] labeled with the patient's information and labeled "heart right ventricle x3" and consists of three fragments of bhatt-red soft tissue ranging from 0.1 to 0.2 cm, submitted entirely in A1. CG/ew SPECIAL STUDIES The following special studies [facility] were performed on this case [facility] and the interpretation is incorporated in the diagnostic report above: BLOCK A1- CON[place] RED Specimen Tissue - Heart Performing Organization Address City/State/Zipcode Phone Number [facility] [address] [place] [address] [facility] * RHYTHM STRIP - SCAN (10/23/2017 11:11 AM LEAD INJECTION MOLD TECHNICIAN) Only the most recent of 2 results within the time period is included. Narrative Performed At * CARDIAC CATH REPORT - SCAN (10/14/2017 9:30 PM LEAD INJECTION MOLD TECHNICIAN) Narrative Performed At after 10/13/2017 Insurance Payer Benefit Subscriber ID Type Phone Address Plan / Group MEDICAID - MEDICAID [facility] xxxxxxxxx Medicaid CARE [facility] STAR Contracted PLAN Advance Directives For more information, please contact: [address] [address] Date Inactivated Comments Code Status Date Activated 11/06/2017 11:31 PM Full Code 11/06/2017 12:47 PM This code status was determined by: Patient 10/11/2017 1:56 AM Full Code 10/08/2017 6:01 PM This code status was determined by: Patient
--- OUTSIDE RECORDS SUMMARY | 2018-10-14 08:42 | XMS REPORT ---
Author Author [facility] Address Unknown Phone Unavailable Care Team Providers Care Accounts Receivable Specialist Name Role Phone Stormy CALDERON Unavailable Unavailable Problems This patient has no known problems. Allergies, Adverse Reactions, Alerts This patient has no known allergies or adverse reactions. Medications This patient has no known medications. Results Test Description Test Time Test Comments Text Results Atomic Results Result Comments VITAMIN B12 AND FOLATE 2018-03-07 16:38:00 VITAMIN B12 (BEAKER) (test kasz=301) 285 pg/mL 213-816 FOLATE (BEAKER) (test kdwk=415) 10.2 ng/mL >=7.0 [id number] 16:33:00* Test Item Value Reference Range Comments CORTISOL, TOTAL (BEAKER) (test rlrq=8427) 11.1 ug/dL 3.7-19.4 IRON, [id number] 16:04:00* Test Item Value Reference Range Comments IRON (BEAKER) (test xpnp=522) 38 ug/dL 40-160 B-TYPE NATRIURETIC FACTOR (BNP)2018-03-07 14:04:00* Test Item Value Reference Range Comments B-TYPE NATRIURETIC PEPTIDE (BEAKER) (test wzkx=581) 454 pg/mL 0-100 BASIC METABOLIC [id number] 13:57:00* Test Item Value Reference Range Comments SODIUM (BEAKER) (test qxdq=481) 140 meq/L 136-145 POTASSIUM (BEAKER) (test pfdi=016) 3.4 meq/L 3.5-5.1 CHLORIDE (BEAKER) (test fkrt=372) 102 meq/L 98-107 CO2 (BEAKER) (test vnva=094) 30 meq/L 22-29 BLOOD UREA NITROGEN (BEAKER) (test rdvb=375) 17 mg/dL 7-21 CREATININE (BEAKER) (test qkvl=592) 1.45 mg/dL 0.57-1.25 GLUCOSE RANDOM (BEAKER) (test pcdw=319) 72 mg/dL 70-105 CALCIUM (BEAKER) (test swwn=080) 9.1 mg/dL 8.4-10.2 EGFR (BEAKER) (test undh=0251) 53 mL/min/1.73 sq m ESTIMATED GFR IS NOT ACCURATE CREATININE CLEARANCE IN PREDICTING GLOMERULAR FILTRATION RATE. ESTIMATED GFR IS NOT APPLICABLE FOR DIALYSIS PATIENTS. CBC W/PLT COUNT & AUTO [id number] 13:36:00* Test Item Value Reference Range Comments WHITE BLOOD CELL COUNT (BEAKER) (test mpiu=140) 5.1 K/ L 3.5-10.5 RED BLOOD CELL COUNT (BEAKER) (test dgot=797) 4.23 M/ L 4.63-6.08 HEMOGLOBIN (BEAKER) (test zzqi=768) 12.0 GM/DL 13.7-17.5 HEMATOCRIT (BEAKER) (test acok=045) 37.4 % 40.1-51.0 MEAN CORPUSCULAR VOLUME (BEAKER) (test hqhp=438) 88.4 fL 79.0-92.2 MEAN CORPUSCULAR HEMOGLOBIN (BEAKER) (test wyje=212) 28.4 pg 25.7-32.2 MEAN CORPUSCULAR HEMOGLOBIN CONC (BEAKER) (test ciwc=500) 32.1 GM/DL 32.3-36.5 RED CELL DISTRIBUTION WIDTH (BEAKER) (test vcna=496) 13.1 % 11.6-14.4 PLATELET COUNT (BEAKER) (test gjyr=220) 229 K/CU MM 150-450 MEAN PLATELET VOLUME (BEAKER) (test dxrw=370) 12.1 fL 9.4-12.4 NUCLEATED RED BLOOD CELLS (BEAKER) (test kfyr=018) 0 /100 WBC 0-0 NEUTROPHILS RELATIVE PERCENT (BEAKER) (test yski=688) 58 % LYMPHOCYTES RELATIVE PERCENT (BEAKER) (test kxlx=850) 27 % MONOCYTES RELATIVE PERCENT (BEAKER) (test jjst=222) 12 % EOSINOPHILS RELATIVE PERCENT (BEAKER) (test xbzz=297) 3 % BASOPHILS RELATIVE PERCENT (BEAKER) (test plko=127) 0 % NEUTROPHILS ABSOLUTE COUNT (BEAKER) (test dqom=395) 2.97 K/ L 1.78-5.38 LYMPHOCYTES ABSOLUTE COUNT (BEAKER) (test ovhb=969) 1.40 K/ L 1.32-3.57 MONOCYTES ABSOLUTE COUNT (BEAKER) (test qlbn=635) 0.59 K/ L 0.30-0.82 EOSINOPHILS ABSOLUTE COUNT (BEAKER) (test vset=578) 0.13 K/ L 0.04-0.54 BASOPHILS ABSOLUTE COUNT (BEAKER) (test ltop=879) 0.02 K/ L 0.01-0.08 IMMATURE GRANULOCYTES-RELATIVE PERCENT (BEAKER) (test ieay=8800) 0 % 0-1 HERPES VIRUS ANTIBODY, [id number] 10:46:00* Test Item Value Reference Range Comments HERPES VIRUS IGM (BEAKER) (test aumd=9891) Negative TOXOPLASMA GONDII ANTIBODY, [id number] 10:46:00* Test Item Value Reference Range Comments TOXOPLASMA IGM ANTIBODY (BEAKER) (test meon=578) Negative VARICELLA ZOSTER ANTIBODY, [id number] 06:29:00* Test Item Value Reference Range Comments VARICELLA ZOSTER IGG (AL) (BEAKER) (test cgud=6895) 3.8 Al VARICELLA ZOSTER RESULT INTERPRETATIONS: <=0.8 Al Nonreactive: Presumed non-immune to VZV 0.9-1.0 Al Equivocal >=1.1 Al Reactive: Presumed immune to VZVTOXOPLASMA GONDII ANTIBODY, [id number] 06:24:00* Test Item Value Reference Range Comments TOXOPLASMA GONDII IGG (BEAKER) (test lzui=389) Negative CYTOMEGALOVIRUS ANTIBODY, [id number] 06:24:00* Test Item Value Reference Range Comments CYTOMEGALOVIRUS IGG ANTIBODY (BEAKER) (test ukre=464) Negative CYTOMEGALOVIRUS ANTIBODY, [id number] 06:24:00* Test Item Value Reference Range Comments CYTOMEGALOVIRUS IGM ANTIBODY (BEAKER) (test scxf=776) Negative EBV-VCA ANTIBODY, [id number] 06:24:00* Test Item Value Reference Range Comments DARLENE-SANTANA VCA IGG (BEAKER) (test krgi=431) Positive EBV-VCA ANTIBODY, [id number] 06:24:00* Test Item Value Reference Range Comments DARLENE-SANTANA VCA IGM (BEAKER) (test ijnb=890) Negative HERPES VIRUS ANTIBODY, [id number] 06:24:00* Test Item Value Reference Range Comments HERPES VIRUS IGG (BEAKER) (test ieyk=5626) Positive HSV IgG 1=NEGATIVEHSV IgG 8=[id number] 00:42:00* Test Item Value Reference Range Comments RPR SCREEN (BEAKER) (test tjlw=675) Nonreactive Nonreactive [id number] 16:59:00* Test Item Value Reference Range Comments PREALBUMIN (BEAKER) (test qryv=491) 25 mg/dL 14-45 IRON, [id number] 16:59:00* Test Item Value Reference Range Comments IRON (BEAKER) (test cjvg=193) 42 ug/dL 40-160 [id number] 16:46:00* Test Item Value Reference Range Comments PROSTATE SPECIFIC ANTIGEN (BEAKER) (test bjwy=042) 0.7 ng/mL 0.0-4.0 HEPATITIS B CORE ANTIBODY, [id number] 16:30:00* Test Item Value Reference Range Comments HEPATITIS B CORE IGM ANTIBODY (BEAKER) (test owfd=004) Nonreactive Nonreactive HEPATITIS A ANTIBODY, [id number] 16:30:00* Test Item Value Reference Range Comments HEPATITIS A IGM ANTIBODY (BEAKER) (test jtro=700) Nonreactive Nonreactive HEPATITIS A ANTIBODY, [id number] 16:30:00* Test Item Value Reference Range Comments HEPATITIS A IGG ANTIBODY (BEAKER) (test hlrm=0907) Nonreactive Nonreactive T4, [id number] 15:58:00* Test Item Value Reference Range Comments FREE T4 (BEAKER) (test bsfg=962) 0.97 ng/dL 0.70-1.48 [id number] 15:58:00* Test Item Value Reference Range Comments THYROID STIMULATING HORMONE (BEAKER) (test luik=934) 2.54 uIU/mL 0.35-4.94 VITAMIN D, [id number] 15:58:00* Test Item Value Reference Range Comments VITAMIN D 25-OH (BEAKER) (test dqrh=7773) 23.5 ng/mL 6.6-49.9 Effective 06/19/2017: Reference Range ChangeNew: 6.6-49.9 ng/mL Previous: 13.0 -47.8 ng/mLRecommended Vitamin D Target Range: 30.0-40.0 ng/mLB-TYPE NATRIURETIC FACTOR (BNP)2017-12-31 15:43:00* Test Item Value Reference Range Comments B-TYPE NATRIURETIC PEPTIDE (BEAKER) (test qtdk=986) 1011 pg/mL 0-100 URIC [id number] 15:36:00* Test Item Value Reference Range Comments URIC ACID (BEAKER) (test vkhn=033) 7.1 mg/dL 2.6-7.2 [id number] 15:36:00* Test Item Value Reference Range Comments MAGNESIUM (BEAKER) (test ezgk=914) 1.9 mg/dL 1.6-2.6 [id number] 15:36:00* Test Item Value Reference Range Comments PHOSPHORUS (BEAKER) (test mqeu=157) 3.5 mg/dL 2.3-4.7 HEPATIC FUNCTION [id number] 15:36:00* Test Item Value Reference Range Comments TOTAL PROTEIN (BEAKER) (test qdsq=671) 7.6 gm/dL 6.0-8.3 ALBUMIN (BEAKER) (test roen=3504) 4.4 g/dL 3.5-5.0 BILIRUBIN TOTAL (BEAKER) (test gczc=686) 0.3 mg/dL 0.2-1.2 BILIRUBIN DIRECT (BEAKER) (test aiwb=661) 0.1 mg/dL 0.1-0.5 ALKALINE PHOSPHATASE (BEAKER) (test zvua=449) 76 U/L 40-150 AST (SGOT) (BEAKER) (test wgdv=973) 22 U/L 5-34 ALT (SGPT) (BEAKER) (test bdva=546) 15 U/L 6-55 [id number] 15:36:00* Test Item Value Reference Range Comments AMYLASE (BEAKER) (test hklq=701) 58 U/L 25-125 [id number] 15:36:00* Test Item Value Reference Range Comments CREATININE (BEAKER) (test zrpz=271) 1.32 mg/dL 0.57-1.25 EGFR (BEAKER) (test voxi=4260) 59 mL/min/1.73 sq m ESTIMATED GFR IS NOT ACCURATE CREATININE CLEARANCE IN PREDICTING GLOMERULAR FILTRATION RATE. ESTIMATED GFR IS NOT APPLICABLE FOR DIALYSIS PATIENTS. BASIC METABOLIC [id number] 15:36:00* Test Item Value Reference Range Comments SODIUM (BEAKER) (test lhtq=777) 142 meq/L 136-145 POTASSIUM (BEAKER) (test mvbn=732) 3.0 meq/L 3.5-5.1 CHLORIDE (BEAKER) (test jcef=875) 100 meq/L 98-107 CO2 (BEAKER) (test cyuk=778) 33 meq/L 22-29 BLOOD UREA NITROGEN (BEAKER) (test igip=551) 10 mg/dL 7-21 CREATININE (BEAKER) (test pjxg=155) 1.32 mg/dL 0.57-1.25 GLUCOSE RANDOM (BEAKER) (test gnwh=695) 96 mg/dL 70-105 CALCIUM (BEAKER) (test jper=651) 9.8 mg/dL 8.4-10.2 EGFR (BEAKER) (test qzck=0624) 59 mL/min/1.73 sq m ESTIMATED GFR IS NOT ACCURATE CREATININE CLEARANCE IN PREDICTING GLOMERULAR FILTRATION RATE. ESTIMATED GFR IS NOT APPLICABLE FOR DIALYSIS PATIENTS. GAMMA GLUTAMYL TRANSFERASE (GGT)2017-12-31 15:36:00* Test Item Value Reference Range Comments GAMMA GLUTAMYL TRANSFERASE (BEAKER) (test oxie=187) 38 U/L 9-64 LACTATE DEHYDROGENASE (LDH)2017-12-31 15:36:00* Test Item Value Reference Range Comments LACTATE DEHYDROGENASE (BEAKER) (test gmcc=050) 271 U/L 125-220 [id number] 15:36:00* Test Item Value Reference Range Comments LIPASE (BEAKER) (test pawx=526) 43 U/L 8-78 [id number] 15:36:00* Test Item Value Reference Range Comments TRANSFERRIN (BEAKER) (test witu=494) 362 mg/dL 174-382 PT/[id number] 15:35:00* Test Item Value Reference Range Comments PROTIME (BEAKER) (test qksw=740) 14.5 seconds 11.7-14.7 INR (BEAKER) (test inrr=065) 1.1 <=5.9 PARTIAL THROMBOPLASTIN TIME (BEAKER) (test ujps=423) 28.4 seconds 22.5-36.0 RECOMMENDED COUMADIN/WARFARIN INR THERAPY RANGESSTANDARD DOSE: 2.0 - 3.0 Inclu shalini: PROPHYLAXIS for venous thrombosis, systemic embolization; TREATMENT for karl ous thrombosis and/or pulmonary embolus.HIGH RISK: Target INR is 2.5-3.5 for pat ients with mechanical heart valves.RETICULOCYTE [id number] 15:19:00* Test Item Value Reference Range Comments RETICULOCYTE COUNT PCT (BEAKER) (test jwcp=361) 1.3 % 0.5-1.8 CBC W/PLT COUNT & AUTO [id number] 15:19:00* Test Item Value Reference Range Comments WHITE BLOOD CELL COUNT (BEAKER) (test tjvu=843) 6.3 K/ L 3.5-10.5 RED BLOOD CELL COUNT (BEAKER) (test drts=183) 4.67 M/ L 4.63-6.08 HEMOGLOBIN (BEAKER) (test xyze=806) 12.9 GM/DL 13.7-17.5 HEMATOCRIT (BEAKER) (test ipmv=632) 41.1 % 40.1-51.0 MEAN CORPUSCULAR VOLUME (BEAKER) (test wowt=456) 88.0 fL 79.0-92.2 MEAN CORPUSCULAR HEMOGLOBIN (BEAKER) (test kfzd=533) 27.6 pg 25.7-32.2 MEAN CORPUSCULAR HEMOGLOBIN CONC (BEAKER) (test amck=779) 31.4 GM/DL 32.3-36.5 RED CELL DISTRIBUTION WIDTH (BEAKER) (test lrqr=328) 19.9 % 11.6-14.4 PLATELET COUNT (BEAKER) (test syjc=493) 257 K/CU MM 150-450 MEAN PLATELET VOLUME (BEAKER) (test gusz=198) 11.2 fL 9.4-12.4 NUCLEATED RED BLOOD CELLS (BEAKER) (test tzco=678) 0 /100 WBC 0-0 NEUTROPHILS RELATIVE PERCENT (BEAKER) (test ywvn=834) 58 % LYMPHOCYTES RELATIVE PERCENT (BEAKER) (test hlri=716) 28 % MONOCYTES RELATIVE PERCENT (BEAKER) (test amaw=282) 9 % EOSINOPHILS RELATIVE PERCENT (BEAKER) (test netp=600) 4 % BASOPHILS RELATIVE PERCENT (BEAKER) (test rezl=428) 1 % NEUTROPHILS ABSOLUTE COUNT (BEAKER) (test vwtr=077) 3.66 K/ L 1.78-5.38 LYMPHOCYTES ABSOLUTE COUNT (BEAKER) (test ssep=862) 1.77 K/ L 1.32-3.57 MONOCYTES ABSOLUTE COUNT (BEAKER) (test srax=731) 0.54 K/ L 0.30-0.82 EOSINOPHILS ABSOLUTE COUNT (BEAKER) (test vsaj=355) 0.23 K/ L 0.04-0.54 BASOPHILS ABSOLUTE COUNT (BEAKER) (test bkzu=915) 0.05 K/ L 0.01-0.08 IMMATURE GRANULOCYTES-RELATIVE PERCENT (BEAKER) (test yfbk=0719) 0 % 0-1 URINALYSIS W/ [id number] 14:19:00* Test Item Value Reference Range Comments COLOR (BEAKER) (test qllp=908) Light Yellow CLARITY (BEAKER) (test tceg=028) Clear SPECIFIC GRAVITY UA (BEAKER) (test qsjz=463) 1.007 1.001-1.035 PH UA (BEAKER) (test gkgy=172) 6.0 5.0-8.0 PROTEIN UA (BEAKER) (test msha=113) Negative Negative GLUCOSE UA (BEAKER) (test jvak=138) Negative Negative KETONES UA (BEAKER) (test uaya=929) Negative Negative BILIRUBIN UA (BEAKER) (test gwgf=496) Negative Negative BLOOD UA (BEAKER) (test qhdk=550) Negative Negative NITRITE UA (BEAKER) (test eosk=389) Negative Negative LEUKOCYTE ESTERASE UA (BEAKER) (test rdyp=353) Negative Negative UROBILINOGEN UA (BEAKER) (test dtaf=656) 0.2 mg/dL 0.2-1.0 RBC UA (BEAKER) (test xjlt=508) 0 /HPF WBC UA (BEAKER) (test aasq=244) 1 /HPF MUCUS (BEAKER) (test tmcf=0128) Rare HYALINE CASTS (BEAKER) (test vmyj=937) 21 /LPF SOURCE(BEAKER) (test rmto=1476) HEMOGLOBIN [id number] 13:20:00* Test Item Value Reference Range Comments HEMOGLOBIN A1C (BEAKER) (test ijmu=387) 6.0 % 4.3-6.1 TSH/FREE T4 IF [id number] 16:43:00* Test Item Value Reference Range Comments THYROID STIMULATING HORMONE (BEAKER) (test plwp=709) 1.06 uIU/mL 0.35-4.94 [id number] 16:22:00* Test Item Value Reference Range Comments PREALBUMIN (BEAKER) (test ehxx=793) 30 mg/dL 14-45 LIPID [id number] 16:10:00* Test Item Value Reference Range Comments TRIGLYCERIDES (BEAKER) (test urlh=345) 168 mg/dL CHOLESTEROL (BEAKER) (test ngtm=914) 201 mg/dL HDL CHOLESTEROL (BEAKER) (test ogtx=907) 55 mg/dL LDL CHOLESTEROL CALCULATED (BEAKER) (test zhiq=299) 112 mg/dL Triglyceride Reference Range: Low Risk <150 Borderline 150-199 High Risk 200-499 Very High Risk >=500Cholesterol Reference Range: Low Risk <200 Borderline 200-239 High Risk >240HDL Cholesterol Reference Range: Low Risk >=60 High Risk <40LDL Cholesterol Reference Range: Optimal <100 Near Optimal 100-129 Borderline 130-159 High 160-189 Very High >=190 URIC [id number] 15:41:00* Test Item Value Reference Range Comments URIC ACID (BEAKER) (test jgky=171) 9.6 mg/dL 2.6-7.2 [id number] 15:41:00* Test Item Value Reference Range Comments MAGNESIUM (BEAKER) (test iuym=372) 2.0 mg/dL 1.6-2.6 BASIC METABOLIC [id number] 15:41:00* Test Item Value Reference Range Comments SODIUM (BEAKER) (test nblv=076) 137 meq/L 136-145 POTASSIUM (BEAKER) (test mara=341) 3.7 meq/L 3.5-5.1 CHLORIDE (BEAKER) (test xskw=255) 98 meq/L 98-107 CO2 (BEAKER) (test ssyc=415) 30 meq/L 22-29 BLOOD UREA NITROGEN (BEAKER) (test gwts=439) 16 mg/dL 7-21 CREATININE (BEAKER) (test flbr=554) 1.25 mg/dL 0.57-1.25 GLUCOSE RANDOM (BEAKER) (test uael=934) 89 mg/dL 70-105 CALCIUM (BEAKER) (test heqj=248) 10.0 mg/dL 8.4-10.2 EGFR (BEAKER) (test vugx=5952) 62 mL/min/1.73 sq m ESTIMATED GFR IS NOT ACCURATE CREATININE CLEARANCE IN PREDICTING GLOMERULAR FILTRATION RATE. ESTIMATED GFR IS NOT APPLICABLE FOR DIALYSIS PATIENTS. HEPATIC FUNCTION [id number] 15:41:00* Test Item Value Reference Range Comments TOTAL PROTEIN (BEAKER) (test lmzn=627) 7.8 gm/dL 6.0-8.3 ALBUMIN (BEAKER) (test ctlg=7503) 4.4 g/dL 3.5-5.0 BILIRUBIN TOTAL (BEAKER) (test tprt=088) 0.4 mg/dL 0.2-1.2 BILIRUBIN DIRECT (BEAKER) (test jawv=021) 0.2 mg/dL 0.1-0.5 ALKALINE PHOSPHATASE (BEAKER) (test ehtd=017) 69 U/L 40-150 AST (SGOT) (BEAKER) (test mzdo=842) 16 U/L 5-34 ALT (SGPT) (BEAKER) (test rroo=109) 11 U/L 6-55 B-TYPE NATRIURETIC FACTOR (BNP)2017-11-26 15:24:00* Test Item Value Reference Range Comments B-TYPE NATRIURETIC PEPTIDE (BEAKER) (test rwtf=142) 557 pg/mL 0-100 PROTHROMBIN TIME/[id number] 15:20:00* Test Item Value Reference Range Comments PROTIME (BEAKER) (test navu=165) 15.3 seconds 11.7-14.7 INR (BEAKER) (test yecq=280) 1.2 <=5.9 RECOMMENDED COUMADIN/WARFARIN INR THERAPY RANGESSTANDARD DOSE: 2.0 - 3.0 Inclu shalini: PROPHYLAXIS for venous thrombosis, systemic embolization; TREATMENT for karl ous thrombosis and/or pulmonary embolus.HIGH RISK: Target INR is 2.5-3.5 for pat ients with mechanical heart valves.CBC W/PLT COUNT & AUTO [id number] 15:14:00* Test Item Value Reference Range Comments WHITE BLOOD CELL COUNT (BEAKER) (test tbmv=859) 5.9 K/ L 3.5-10.5 RED BLOOD CELL COUNT (BEAKER) (test hwkd=944) 5.25 M/ L 4.63-6.08 HEMOGLOBIN (BEAKER) (test ykgp=440) 13.7 GM/DL 13.7-17.5 HEMATOCRIT (BEAKER) (test ncgx=025) 43.2 % 40.1-51.0 MEAN CORPUSCULAR VOLUME (BEAKER) (test lozp=962) 82.3 fL 79.0-92.2 MEAN CORPUSCULAR HEMOGLOBIN (BEAKER) (test dyun=278) 26.1 pg 25.7-32.2 MEAN CORPUSCULAR HEMOGLOBIN CONC (BEAKER) (test zeop=044) 31.7 GM/DL 32.3-36.5 RED CELL DISTRIBUTION WIDTH (BEAKER) (test tbvd=990) 20.8 % 11.6-14.4 PLATELET COUNT (BEAKER) (test cdth=310) 291 K/CU MM 150-450 MEAN PLATELET VOLUME (BEAKER) (test dale=781) 11.6 fL 9.4-12.4 NUCLEATED RED BLOOD CELLS (BEAKER) (test sdbv=755) 0 /100 WBC 0-0 NEUTROPHILS RELATIVE PERCENT (BEAKER) (test whhg=678) 57 % LYMPHOCYTES RELATIVE PERCENT (BEAKER) (test qykm=903) 30 % MONOCYTES RELATIVE PERCENT (BEAKER) (test flqq=723) 8 % EOSINOPHILS RELATIVE PERCENT (BEAKER) (test wznh=927) 4 % BASOPHILS RELATIVE PERCENT (BEAKER) (test cevg=875) 1 % NEUTROPHILS ABSOLUTE COUNT (BEAKER) (test iohv=749) 3.36 K/ L 1.78-5.38 LYMPHOCYTES ABSOLUTE COUNT (BEAKER) (test lszu=519) 1.73 K/ L 1.32-3.57 MONOCYTES ABSOLUTE COUNT (BEAKER) (test nkyd=597) 0.48 K/ L 0.30-0.82 EOSINOPHILS ABSOLUTE COUNT (BEAKER) (test jtwk=613) 0.23 K/ L 0.04-0.54 BASOPHILS ABSOLUTE COUNT (BEAKER) (test yzhj=113) 0.05 K/ L 0.01-0.08 IMMATURE GRANULOCYTES-RELATIVE PERCENT (BEAKER) (test cafa=6100) 0 % 0-1 TISSUE [id number] 15:30:00Surgical Pathology Report Case: [id number] Authorizing Provider: Jose R Calderon MD Collected: 11/06/20171956 Ordering Location: [facility] Received: 11/07/2017 0751 Pathologist: Juan Luis Mcadams MD Specimen: Heart, RV x3 in formulin. exclude infiltrated cardiomyopathy Perls iron stain does not demonstrate abnormal iron accumulation.Trichrome stain highlights mild to moderately increased interstitial fibrosis.Additional CPT codes: [id number] electronically signed by Juan Luis Mcadams MD on 11/12/2017 at 3:30 PMPART A RIGHT CARDIAC VENTRICLE, ENDOMYOCARDIAL BIOPSY:MYOCARDIUM WITH MILD MYOCYTE HYPERTROPHIC FEATURES.CONGO RED STAIN FOR AMYLOID IS NEGATIVE. Signing Pathologist Direct Phone Line: [phone] signed by Juan Luis Mcadams MD on 11/08/2017 at 1:48 [id number], [id number], exclude infiltrated cardiomyopathy Right ventricle a1Dxqqmnyl is received in a single container of formalin labeled with the patient's information and labeled "heart right ventricle x3" and consists of three fragments of bhatt-red soft tissue ranging from 0.1 to 0.2 cm, submitted entirely in A1. CG/ewThe following special studies were performed on this case and the interpretation is incorporated in the diagnostic report above:BLOCK A1- CONGO REDB-TYPE NATRIURETIC FACTOR (BNP) 2017-11-06 14:18:00* Test Item Value Reference Range Comments B-TYPE NATRIURETIC PEPTIDE ([employer]CampusT[employer]AKER) (test dcfv=856) 964 pg/mL 0-100 LIPID [id number] 13:51:00* Test Item Value Reference Range Comments TRIGLYCERIDES (BEAKER) (test aumg=364) 159 mg/dL CHOLESTEROL (BEAKER) (test xqas=076) 169 mg/dL HDL CHOLESTEROL (BEAKER) (test fczo=499) 52 mg/dL LDL CHOLESTEROL CALCULATED ([employer]CampusT[employer]AKER) (test ydzb=872) 85 mg/dL Triglyceride Reference Range: Low Risk <150 Borderline 150-199 High Risk 200-499 Very High Risk >=500Cholesterol Reference Range: Low Risk <200 Borderline 200-239 High Risk >240HDL Cholesterol Reference Range: Low Risk >=60 High Risk <40LDL Cholesterol Reference Range: Optimal <100 Near Optimal 100-129 Borderline 130-159 High 160-189 Very High >=190 BASIC METABOLIC [id number] 13:51:00* Test Item Value Reference Range Comments SODIUM (BEAKER) (test gipo=461) 139 meq/L 136-145 POTASSIUM (BEAKER) (test zope=643) 3.4 meq/L 3.5-5.1 CHLORIDE (BEAKER) (test srfq=544) 99 meq/L 98-107 CO2 (BEAKER) (test xpcn=316) 29 meq/L 22-29 BLOOD UREA NITROGEN (BEAKER) (test dzyn=052) 21 mg/dL 7-21 CREATININE (BEAKER) (test wbwo=499) 1.08 mg/dL 0.57-1.25 GLUCOSE RANDOM (BEAKER) (test udjv=557) 82 mg/dL 70-105 CALCIUM (BEAKER) (test rdze=193) 9.5 mg/dL 8.4-10.2 EGFR (BEAKER) (test fcnl=3218) 74 mL/min/1.73 sq m ESTIMATED GFR IS NOT ACCURATE CREATININE CLEARANCE IN PREDICTING GLOMERULAR FILTRATION RATE. ESTIMATED GFR IS NOT APPLICABLE FOR DIALYSIS PATIENTS. HEPATIC FUNCTION [id number] 13:51:00* Test Item Value Reference Range Comments TOTAL PROTEIN (BEAKER) (test atct=449) 7.7 gm/dL 6.0-8.3 ALBUMIN (BEAKER) (test vmtz=2319) 4.2 g/dL 3.5-5.0 BILIRUBIN TOTAL (BEAKER) (test tleu=004) 0.3 mg/dL 0.2-1.2 BILIRUBIN DIRECT (BEAKER) (test htnt=409) 0.2 mg/dL 0.1-0.5 ALKALINE PHOSPHATASE (BEAKER) (test omzv=429) 80 U/L 40-150 AST (SGOT) (BEAKER) (test xatl=967) 22 U/L 5-34 ALT (SGPT) (BEAKER) (test guvn=052) 17 U/L 6-55 CBC W/PLT COUNT & AUTO [id number] 13:31:00* Test Item Value Reference Range Comments WHITE BLOOD CELL COUNT (BEAKER) (test ohoj=512) 6.4 K/ L 3.5-10.5 RED BLOOD CELL COUNT (BEAKER) (test zqdk=795) 4.97 M/ L 4.63-6.08 HEMOGLOBIN (BEAKER) (test pcyw=599) 12.6 GM/DL 13.7-17.5 HEMATOCRIT (BEAKER) (test abfk=615) 40.2 % 40.1-51.0 MEAN CORPUSCULAR VOLUME (BEAKER) (test jxvt=219) 80.9 fL 79.0-92.2 MEAN CORPUSCULAR HEMOGLOBIN (BEAKER) (test glgo=916) 25.4 pg 25.7-32.2 MEAN CORPUSCULAR HEMOGLOBIN CONC (BEAKER) (test jbji=094) 31.3 GM/DL 32.3-36.5 RED CELL DISTRIBUTION WIDTH (BEAKER) (test pfey=204) 18.7 % 11.6-14.4 PLATELET COUNT (BEAKER) (test mdhj=287) 230 K/CU MM 150-450 MEAN PLATELET VOLUME (BEAKER) (test vzjk=931) 11.7 fL 9.4-12.4 NUCLEATED RED BLOOD CELLS (BEAKER) (test jtrk=737) 0 /100 WBC 0-0 NEUTROPHILS RELATIVE PERCENT (BEAKER) (test bzdo=053) 57 % LYMPHOCYTES RELATIVE PERCENT (BEAKER) (test omso=484) 29 % MONOCYTES RELATIVE PERCENT (BEAKER) (test scsn=768) 9 % EOSINOPHILS RELATIVE PERCENT (BEAKER) (test ivly=412) 4 % BASOPHILS RELATIVE PERCENT (BEAKER) (test ngsv=666) 1 % NEUTROPHILS ABSOLUTE COUNT (BEAKER) (test eclz=114) 3.64 K/ L 1.78-5.38 LYMPHOCYTES ABSOLUTE COUNT (BEAKER) (test zkkl=529) 1.84 K/ L 1.32-3.57 MONOCYTES ABSOLUTE COUNT (BEAKER) (test rfvd=390) 0.60 K/ L 0.30-0.82 EOSINOPHILS ABSOLUTE COUNT (BEAKER) (test iary=844) 0.27 K/ L 0.04-0.54 BASOPHILS ABSOLUTE COUNT (BEAKER) (test zysz=366) 0.06 K/ L 0.01-0.08 IMMATURE GRANULOCYTES-RELATIVE PERCENT (BEAKER) (test mgcp=3291) 0 % 0-1 CHROMOGRANIN [id number] 12:06:00* Test Item Value Reference Range Comments SCAN RESULT (test kpvs=[id number]) PROTEIN ELECTROPHORESIS, [id number] 17:32:00* Test Item Value Reference Range Comments ALBUMIN FRACTION (BEAKER) (test hfxz=509) 2.7 g/dL 3.5-5.5 ALPHA 1 FRACTION (BEAKER) (test flrn=439) 0.2 g/dL 0.2-0.4 ALPHA 2 FRACTION (BEAKER) (test socj=551) 0.6 g/dL 0.5-0.9 BETA FRACTION (BEAKER) (test rrds=459) 0.9 g/dL 0.6-1.1 GAMMA GLOBULIN FRACTION (BEAKER) (test iqxy=673) 0.7 g/dL 0.7-1.7 INTERPRETATION-119 (BEAKER) (test nfcz=5982) Decreased albumin with concurrent relative increases in alpha and beta globulins. No monoclonal bands detected. [id number] (BEAKER) (test rrpq=6471) Aria Somers MD (electronic signature) PROTEIN TOTAL SERUM, SPEP (BEAKER) (test cdbi=8688) 5.2 gm/dL 6.0-8.3 Do not collect, specimen already in lab.HEPATITIS A [id number] 22:30:00* Test Item Value Reference Range Comments HEPATITIS A IGM ANTIBODY (BEAKER) (test nbfv=432) Nonreactive Nonreactive HEPATITIS A IGG ANTIBODY (BEAKER) (test cmab=5201) Nonreactive Nonreactive HEMOGLOBIN [id number] 08:47:00* Test Item Value Reference Range Comments HEMOGLOBIN A1C (BEAKER) (test fthu=184) 5.9 % 4.3-6.1 [id number] 07:52:00* Test Item Value Reference Range Comments FERRITIN (BEAKER) (test kgho=615) 12 ng/mL 5-275 VITAMIN B12 AND [id number] 07:52:00* Test Item Value Reference Range Comments VITAMIN B12 (BEAKER) (test nsay=894) 337 pg/mL 213-816 FOLATE (BEAKER) (test gxla=784) 10.1 ng/mL >=7.0 HEPATIC FUNCTION [id number] 07:18:00* Test Item Value Reference Range Comments TOTAL PROTEIN (BEAKER) (test jvxa=297) 5.5 gm/dL 6.0-8.3 ALBUMIN (BEAKER) (test yuhd=7472) 3.0 g/dL 3.5-5.0 BILIRUBIN TOTAL (BEAKER) (test beao=116) 0.4 mg/dL 0.2-1.2 BILIRUBIN DIRECT (BEAKER) (test ogpe=501) 0.3 mg/dL 0.1-0.5 ALKALINE PHOSPHATASE (BEAKER) (test wrep=146) 88 U/L 40-150 AST (SGOT) (BEAKER) (test pcaw=039) 22 U/L 5-34 ALT (SGPT) (BEAKER) (test qpit=980) 43 U/L 6-55 BASIC METABOLIC [id number] 07:18:00* Test Item Value Reference Range Comments SODIUM (BEAKER) (test mvkm=769) 139 meq/L 136-145 POTASSIUM (BEAKER) (test guwd=109) 3.2 meq/L 3.5-5.1 CHLORIDE (BEAKER) (test cwcm=691) 101 meq/L 98-107 CO2 (BEAKER) (test hmlb=118) 30 meq/L 22-29 BLOOD UREA NITROGEN (BEAKER) (test kaae=502) 24 mg/dL 7-21 CREATININE (BEAKER) (test etlc=926) 1.10 mg/dL 0.57-1.25 GLUCOSE RANDOM (BEAKER) (test iuja=428) 98 mg/dL 70-105 CALCIUM (BEAKER) (test rpda=351) 8.7 mg/dL 8.4-10.2 EGFR (BEAKER) (test kbaw=9754) 72 mL/min/1.73 sq m ESTIMATED GFR IS NOT ACCURATE CREATININE CLEARANCE IN PREDICTING GLOMERULAR FILTRATION RATE. ESTIMATED GFR IS NOT APPLICABLE FOR DIALYSIS PATIENTS. IRON, TIBC, % SAT. (WITHOUT FERRITIN)2017-10-10 07:17:00* Test Item Value Reference Range Comments IRON (BEAKER) (test plpv=115) 18 ug/dL 40-160 TOTAL IRON BINDING CAPACITY (BEAKER) (test nurt=337) 364 ug/dL 250-450 IRON % SATURATION (2) (BEAKER) (test ypki=1481) 5 % 20-55 CBC (HEMOGRAM ONLY)2017-10-10 06:31:00* Test Item Value Reference Range Comments WHITE BLOOD CELL COUNT (BEAKER) (test kgaw=525) 6.4 K/ L 3.5-10.5 RED BLOOD CELL COUNT (BEAKER) (test yedi=156) 4.46 M/ L 4.63-6.08 HEMOGLOBIN (BEAKER) (test famt=422) 11.2 GM/DL 13.7-17.5 HEMATOCRIT (BEAKER) (test lykt=140) 36.2 % 40.1-51.0 MEAN CORPUSCULAR VOLUME (BEAKER) (test pvtm=685) 81.2 fL 79.0-92.2 MEAN CORPUSCULAR HEMOGLOBIN (BEAKER) (test aelx=675) 25.1 pg 25.7-32.2 MEAN CORPUSCULAR HEMOGLOBIN CONC (BEAKER) (test tstg=604) 30.9 GM/DL 32.3-36.5 RED CELL DISTRIBUTION WIDTH (BEAKER) (test ooxw=396) 16.9 % 11.6-14.4 PLATELET COUNT (BEAKER) (test jgjk=082) 193 K/CU MM 150-450 MEAN PLATELET VOLUME (BEAKER) (test hpvg=651) 12.5 fL 9.4-12.4 NUCLEATED RED BLOOD CELLS (BEAKER) (test ykwu=193) 0 /100 WBC 0-0 U/S, ABDOMINAL, [id number] 03:53:00Reason for exam:->abdominal pain. exclude biliary pathology and cirrhosis with increased LFTs.FINAL REPORT U/S, ABDOMINAL, COMPLETE INDICATION: "abdominal pain. exclude biliary pathology and cirrhosis with increased LFTs." COMPARISON: None. TECHNIQUE: Real-time transabdominal beltrán scale and color Doppler ultrasound of the abdomen. FINDINGS:Pancreas not visualized.Normal liver echotexture and echogenicity without a discrete mass or intrahepatic bile duct dilation.Normal caliber CBD at 3 mm.Minimal amount of biliary sludge. No pericholecystic fl uid.Sonographic Cortez's sign is negative.Visualized portions of the kidneys are unremarkable without obvious hydronephrosis.Spleen is not enlarged.The visualiz ed portions of the IVC and aorta are unremarkable. IMPRESSION: *Minimal amount o f biliary sludge. Signed: Kyle Rodrigues MDReport Verified Date/Time: 10/10/19 03:53:28 Reading Location: [address] Consult Reading Room Elect ronically signed by: KYLE RODRIGUES MD on 10/10/2017 03:53 AM MR, CARDIAC, [id number] 18:51:00Reason for exam:->Cardiomyopathy - evaluate for infiltrative cardiomyopathy, exclude prior myocarditis.FINAL REPORT Cardiac MRI dated 09 October 2017 INDICATION: This is a 47 year-old male with cardiomyopathy presents for assessment. This study is performed in order to quantitate left ventricular function, and to determine myocardial viability and damage. TECHNIQUE: Benjy ACHIEVA MRI scanner. Morphologic and dynamic cine imaging were performed in multiple projections before and after contrast administration. Thereafter, gadolinium was administered, which was followed by viability/scar imaging. Finally, flow quantification sequences were performed to determine the degree of valvular dysfunction. Please refer to the contrast sheet scanned in the EPIC system for the amount and route of contrast given. Scanning blood pressure was 98/64. Patient weighs 170 pounds, with height of 72 inches. Body surface area is approximately 1.98 sq m. FINDINGS: The chest wall and mediastinum appears unremarkable. The pericardium and pulmonary arteries appear normal; no pericardial effusion is identified in the central pulmonary artery is normal in calibre. Limited imaging through the lungs reveals no gross abnormalities; dependent changes are seen in the lung bases. MR is not optimised in the assessment of pulmonary parenchymal lung disease The cardiac chambers demonstrate normal atrioventricular and ventriculoarterial concordance, and systemic and pulmonary venous return. The thoracic aorta is normal in course, caliber, and contour. There is no evidence of acute aortic pathology, such as dissection, intramural hematoma, or contained rupture. The left ventric le is significantly enlarged, with severe global systolic dysfunction. The inte rventricular septum has the worse wall motion abnormality and is essentially radha netic. Quantitative values are as follows: VYA=694 cc; JXL=309 cc; stroke volume =70 cc; and ejection fraction=15%. Calculated absolute cardiac output=6.0 liter s/min. Absolute left ventricular lkqv=485 grams. Index QGBCA=036 cc/sq m confir mary substantial left ventricular enlargement. Mild increased in trabeculation i s identified, commencing in dilated heart, does not represent noncompaction. The right ventricle is also enlarged, with severe systolic dysfunction. Quantitati ve values are as follows: XOZ=368 cc; IEO=565 cc; stroke volume=39 cc; and eject ion fraction=12%. Cine imaging and flow quantification reveals eccentric signi ficant mitral regurgitation, with regurgitant fraction=68%. Viability/scar imagi ng reveals uniformly "nulled" myocardium, indicating no prior myocardial damage. All of the left ventricular myocardium appears full thickness and viable. There is reduction in left ventricular long axis strain, -5.8% (normal MRI reference range for male is approximately -17.1 + / - 2.1%). Ventricular thrombus is not present. Flow curves suggest raised left atrial pressure. Left atrial enlargem ent is identified. CONCLUSIONS: 1. The left ventricle is significantly enlarged with severe global systolic dysfunction. Ejection fraction is quantified to be 15%. Quantitative left ventricular functional values are as described above. Vi ability/scar imaging is normal. There is no evidence of prior myocardial damage . No abnormal enhancement of the myocardium is seen after contrast administrati on. There is no imaging findings to suggest prior myocarditis. Substantial reduc tion in left ventricular long axis strain. 2. Eccentric Mitral mitral regurgitat ion with regurgitant fraction=68% 3. Raised left atrial pressures. Left atrial e nlargement. Signed: Jaspreet Sun Verified Date/Time: 10/09/2017 18 :51:42 Reading Location: [place] [address] Cardiology MRI , CHEST, 1 VIEW, NON DEPT 2017-10-09 10:27:00Reason for exam:->chfShould this be performed at the bedside?->YesFINAL REPORT Chest one view INDICATION: CHF COMPARISON: None available IMPRESSION: There is no focal consolidation, pulmonary edema, pleural effusion, or pneumothorax. The cardiac silhouette is enlarged. Mediastinal contours are unremarkable. A chronic right clavicular fracture is present with override. Signed: Martha Harrison Verified Date/Time: 10/09/2017 10:27:12 Reading Location: [facility] Radiology Reading Room -NUCLEAR ANTIBODY (LUI)2017-10-09 08:56:00* Test Item Value Reference Range Comments ANTI-NUCLEAR ANTIBODY (LUI) (BEAKER) (test sjlr=334) Negative Negative BASIC METABOLIC [id number] 07:52:00* Test Item Value Reference Range Comments SODIUM (BEAKER) (test tqat=805) 136 meq/L 136-145 POTASSIUM (BEAKER) (test ejdt=809) 3.2 meq/L 3.5-5.1 CHLORIDE (BEAKER) (test pzwk=162) 96 meq/L 98-107 CO2 (BEAKER) (test elrz=867) 31 meq/L 22-29 BLOOD UREA NITROGEN (BEAKER) (test qcrs=297) 26 mg/dL 7-21 CREATININE (BEAKER) (test rkju=666) 1.23 mg/dL 0.57-1.25 GLUCOSE RANDOM (BEAKER) (test jlvk=198) 110 mg/dL 70-105 CALCIUM (BEAKER) (test bvtu=784) 8.1 mg/dL 8.4-10.2 EGFR (BEAKER) (test tajf=9135) 64 mL/min/1.73 sq m ESTIMATED GFR IS NOT ACCURATE CREATININE CLEARANCE IN PREDICTING GLOMERULAR FILTRATION RATE. ESTIMATED GFR IS NOT APPLICABLE FOR DIALYSIS PATIENTS. HEPATITIS B SURFACE [id number] 07:34:00* Test Item Value Reference Range Comments HEPATITIS B SURFACE ANTIBODY (BEAKER) (test qgyv=762) < mIU/mL <8.0 HEPATITIS C [id number] 07:33:00* Test Item Value Reference Range Comments HEPATITIS C ANTIBODY (BEAKER) (test fbdd=227) Nonreactive Nonreactive HEPATITIS B CORE ANTIBODY, [id number] 07:33:00* Test Item Value Reference Range Comments HEPATITIS B CORE TOTAL ANTIBODY (BEAKER) (test vcmq=525) Nonreactive Nonreactive HIV-1 ANTIGEN WITH HIV-1/2 [id number] 07:33:00* Test Item Value Reference Range Comments HIV-1 ANTIGEN WITH HIV 1\\T\\2 ANTIBODY (2) (BEAKER) (test vygs=6095) Nonreactive Nonreactive CBC (HEMOGRAM ONLY)2017-10-09 06:47:00* Test Item Value Reference Range Comments WHITE BLOOD CELL COUNT (BEAKER) (test dafq=144) 5.8 K/ L 3.5-10.5 RED BLOOD CELL COUNT (BEAKER) (test pdfw=750) 4.31 M/ L 4.63-6.08 HEMOGLOBIN (BEAKER) (test hvvn=976) 11.2 GM/DL 13.7-17.5 HEMATOCRIT (BEAKER) (test rcin=623) 34.9 % 40.1-51.0 MEAN CORPUSCULAR VOLUME (BEAKER) (test azih=541) 81.0 fL 79.0-92.2 MEAN CORPUSCULAR HEMOGLOBIN (BEAKER) (test ymaj=569) 26.0 pg 25.7-32.2 MEAN CORPUSCULAR HEMOGLOBIN CONC (BEAKER) (test ggzj=078) 32.1 GM/DL 32.3-36.5 RED CELL DISTRIBUTION WIDTH (BEAKER) (test ukqy=647) 17.1 % 11.6-14.4 PLATELET COUNT (BEAKER) (test zfpf=619) 184 K/CU MM 150-450 MEAN PLATELET VOLUME (BEAKER) (test zwhv=700) 12.9 fL 9.4-12.4 NUCLEATED RED BLOOD CELLS (BEAKER) (test pava=331) 0 /100 WBC 0-0 URINALYSIS W/ [id number] 22:30:00* Test Item Value Reference Range Comments COLOR (BEAKER) (test ffnk=063) Yellow CLARITY (BEAKER) (test ffxh=428) Clear SPECIFIC GRAVITY UA (BEAKER) (test skiz=445) 1.013 1.001-1.035 PH UA (BEAKER) (test ujto=452) 6.0 5.0-8.0 PROTEIN UA (BEAKER) (test vzhf=896) 10 mg/dL Negative GLUCOSE UA (BEAKER) (test ymne=476) Negative Negative KETONES UA (BEAKER) (test amct=056) Negative Negative BILIRUBIN UA (BEAKER) (test qrtx=928) Negative Negative BLOOD UA (BEAKER) (test eaxe=897) Negative Negative NITRITE UA (BEAKER) (test tbdf=869) Negative Negative LEUKOCYTE ESTERASE UA (BEAKER) (test xoiy=613) Negative Negative UROBILINOGEN UA (BEAKER) (test zznw=768) 2.0 mg/dL 0.2-1.0 RBC UA (BEAKER) (test vxub=667) < /HPF WBC UA (BEAKER) (test oxoh=469) < /HPF HYALINE CASTS (BEAKER) (test rmpg=281) 14 /LPF SOURCE(BEAKER) (test kpkf=9345) TSH/FREE T4 IF [id number] 21:33:00* Test Item Value Reference Range Comments THYROID STIMULATING HORMONE (BEAKER) (test lnxc=756) 0.66 uIU/mL 0.35-4.94 LIPID [id number] 21:12:00* Test Item Value Reference Range Comments TRIGLYCERIDES (BEAKER) (test dnxe=851) 203 mg/dL CHOLESTEROL (BEAKER) (test eqoh=697) 106 mg/dL HDL CHOLESTEROL (BEAKER) (test nrkg=774) 28 mg/dL LDL CHOLESTEROL CALCULATED (BEAKER) (test hfxq=875) 37 mg/dL Triglyceride Reference Range: Low Risk <150 Borderline 150-199 High Risk 200-499 Very High Risk >=500Cholesterol Reference Range: Low Risk <200 Borderline 200-239 High Risk >240HDL Cholesterol Reference Range: Low Risk >=60 High Risk <40LDL Cholesterol Reference Range: Optimal <100 Near Optimal 100-129 Borderline 130-159 High 160-189 Very High >=190 BASIC METABOLIC [id number] 21:12:00* Test Item Value Reference Range Comments SODIUM (BEAKER) (test yung=587) 136 meq/L 136-145 POTASSIUM (BEAKER) (test avks=508) 3.4 meq/L 3.5-5.1 CHLORIDE (BEAKER) (test hpbp=702) 95 meq/L 98-107 CO2 (BEAKER) (test ytqm=855) 29 meq/L 22-29 BLOOD UREA NITROGEN (BEAKER) (test izky=118) 32 mg/dL 7-21 CREATININE (BEAKER) (test kmva=761) 1.59 mg/dL 0.57-1.25 GLUCOSE RANDOM (BEAKER) (test iewt=841) 79 mg/dL 70-105 CALCIUM (BEAKER) (test fryh=961) 8.7 mg/dL 8.4-10.2 EGFR (BEAKER) (test dxaw=7152) 47 mL/min/1.73 sq m ESTIMATED GFR IS NOT ACCURATE CREATININE CLEARANCE IN PREDICTING GLOMERULAR FILTRATION RATE. ESTIMATED GFR IS NOT APPLICABLE FOR DIALYSIS PATIENTS. HEPATIC FUNCTION [id number] 21:12:00* Test Item Value Reference Range Comments TOTAL PROTEIN (BEAKER) (test hehm=677) 6.3 gm/dL 6.0-8.3 ALBUMIN (BEAKER) (test qcws=8847) 3.4 g/dL 3.5-5.0 BILIRUBIN TOTAL (BEAKER) (test hyxu=837) 0.6 mg/dL 0.2-1.2 BILIRUBIN DIRECT (BEAKER) (test sdan=324) 0.2 mg/dL 0.1-0.5 ALKALINE PHOSPHATASE (BEAKER) (test rhvr=725) 111 U/L 40-150 AST (SGOT) (BEAKER) (test mshz=657) 45 U/L 5-34 ALT (SGPT) (BEAKER) (test hbam=258) 67 U/L 6-55 C-REACTIVE [id number] 21:12:00* Test Item Value Reference Range Comments C-REACTIVE PROTEIN (BEAKER) (test lpst=297) 3.69 mg/dL 0.00-0.50 SEDIMENTATION [id number] 21:01:00* Test Item Value Reference Range Comments SEDIMENTATION RATE, ERYTHROCYTE (BEAKER) (test uzqx=317) 15 mm/HR 0-15 B-TYPE NATRIURETIC FACTOR (BNP)2017-10-08 20:12:00* Test Item Value Reference Range Comments B-TYPE NATRIURETIC PEPTIDE (BEAKER) (test uxnb=971) 2773 pg/mL 0-100 CBC W/PLT COUNT & AUTO [id number] 19:15:00* Test Item Value Reference Range Comments WHITE BLOOD CELL COUNT (BEAKER) (test zlnl=674) 6.2 K/ L 3.5-10.5 RED BLOOD CELL COUNT (BEAKER) (test xaso=675) 4.66 M/ L 4.63-6.08 HEMOGLOBIN (BEAKER) (test ngyg=197) 12.1 GM/DL 13.7-17.5 HEMATOCRIT (BEAKER) (test lqqt=446) 37.5 % 40.1-51.0 MEAN CORPUSCULAR VOLUME (BEAKER) (test veek=040) 80.5 fL 79.0-92.2 MEAN CORPUSCULAR HEMOGLOBIN (BEAKER) (test cpgh=103) 26.0 pg 25.7-32.2 MEAN CORPUSCULAR HEMOGLOBIN CONC (BEAKER) (test gvbo=747) 32.3 GM/DL 32.3-36.5 RED CELL DISTRIBUTION WIDTH (BEAKER) (test bbyb=443) 17.4 % 11.6-14.4 PLATELET COUNT (BEAKER) (test acgg=872) 215 K/CU MM 150-450 MEAN PLATELET VOLUME (BEAKER) (test yolq=312) 12.4 fL 9.4-12.4 NUCLEATED RED BLOOD CELLS (BEAKER) (test hxsm=923) 0 /100 WBC 0-0 NEUTROPHILS RELATIVE PERCENT (BEAKER) (test mrlr=513) 55 % LYMPHOCYTES RELATIVE PERCENT (BEAKER) (test vyvg=886) 30 % MONOCYTES RELATIVE PERCENT (BEAKER) (test auhu=511) 11 % EOSINOPHILS RELATIVE PERCENT (BEAKER) (test ljrk=040) 3 % BASOPHILS RELATIVE PERCENT (BEAKER) (test yqul=288) 1 % NEUTROPHILS ABSOLUTE COUNT (BEAKER) (test myqx=565) 3.40 K/ L 1.78-5.38 LYMPHOCYTES ABSOLUTE COUNT (BEAKER) (test rsul=975) 1.83 K/ L 1.32-3.57 MONOCYTES ABSOLUTE COUNT (BEAKER) (test edjl=264) 0.69 K/ L 0.30-0.82 EOSINOPHILS ABSOLUTE COUNT (BEAKER) (test ajuf=435) 0.18 K/ L 0.04-0.54 BASOPHILS ABSOLUTE COUNT (BEAKER) (test fioa=418) 0.05 K/ L 0.01-0.08 IMMATURE GRANULOCYTES-RELATIVE PERCENT (BEAKER) (test vyel=1007) 0 % 0-1
[2018-10-14] MEDS ORDERED: KETOROLAC TROMETHAMINE 30 MG/ML VIAL IV STA (09:12)
[2018-10-14] MEDS ORDERED: BUMETANIDE2 MG PO (09:14)
[2018-10-14] MEDS ORDERED: VITAMIN D250000 UNIT PO (09:14)
[2018-10-14] MEDS ORDERED: ENTRESTO PO (09:14)
[2018-10-14] MEDS ORDERED: SUBOXONE 8 MG-1 EAC2 SL (09:14)
[2018-10-14] MEDS ORDERED: D-AMPHETAMINE PO (09:14)
[2018-10-14] MEDS ORDERED: NEXIUM40 MG PO (09:14)
[2018-10-14] MEDS ORDERED: CARVEDILOL3.125 MG PO (09:14)
[2018-10-14] MEDS ORDERED: MELOXICAM15 MG PO (09:14)
[2018-10-14] MEDS ORDERED: ELIQUIS PO (09:14)
[2018-10-14] MEDS ORDERED: SODIUM CHLORIDE 0.9% 1000ML 1,000 ML IV ONE (09:15)
[2018-10-14] MEDS ORDERED: ASPIRIN 81 MG CHEW TAB PO ONE (09:15)
[2018-10-14 09:16] LABS: BASOPHILS % 0.3 % (0.0-1.0); HEMOGLOBIN 11.6 g/dL (14.0-18.0); LYMPHOCYTES # (AUTO) 2.4 (1.0-3.2); LYMPHOCYTES % 17.3 % (18.0-39.1); MEAN CORPUSCULAR HEMOGLOBIN 22.9 pg (28-32); MEAN CORPUSCULAR HGB CONC 29.7 g/dL (31-35); MEAN CORPUSCULAR VOLUME 77.1 fL (81-99); MONOCYTES # (AUTO) 1.9 (0.2-0.8); MONOCYTES % 13.4 % (4.4-11.3); NEUTROPHILS # (AUTO) 9.7 (2.1-6.9); NEUTROPHILS % 68.3 % (38.7-80.0); PLATELET COUNT 359 x10e3/uL (140-360); RED BLOOD COUNT 5.06 x10e6/uL (4.3-5.7); RED CELL DISTRIBUTION WIDTH 18.4 % (11.7-14.4)
[2018-10-14] MEDS ORDERED: ONDANSETRON HCL INJ 2MG/ML 2ML 2 MG/ML VIAL IV STA (09:25)
[2018-10-14 09:33] LABS: ANION GAP 24.7 mmol/L (8-16); CREATININE, SERUM 2.46 mg/dL (0.72-1.25)
[2018-10-14 09:41] LABS: POTASSIUM 5.7 mmol/L (3.5-5.1)
--- NOTE | 2018-10-14 10:08 | Diagnostic Imaging Report ---
EXAM: CHEST 2 VIEWS, PA and lateral DATE: 10/14/2018 Time stamp on exam: 9:16 AM INDICATION: Chest pain COMPARISON: None FINDINGS: LINES/TUBES: None LUNGS: No consolidations or edema. PLEURA: No effusions or pneumothorax. HEART AND MEDIASTINUM: The heart is enlarged. No signs of decompensation. BONES AND SOFT TISSUES: No acute findings. IMPRESSION: Cardiomegaly without signs of decompensation. Signed by: Dr. Ricky Collado DO on 10/14/2018 10:04 AM
[2018-10-14 10:20] LABS: LYMPHOCYTES % (MANUAL) 13 % (19-48); MONOCYTES % (MANUAL) 13 % (3.4-9.0); NEUTROPHILS % (MANUAL) 70 % (40-74)
[2018-10-14 10:21] LABS: ANISOCYTOSIS SLIGHT; HYPOCHROMASIA SLIGHT; PLATELET ESTIMATE ADEQUATE; PLATELET MORPHOLOGY COMMENT FEW LARGE; RBC MORPHOLOGY COMMENT NORMAL
[2018-10-14] MEDS ORDERED: DIPHENHYDRAMINE25 M2 PO (10:24)
[2018-10-14] MEDS ORDERED: DIGOXIN250 MCG PO (10:24)
[2018-10-14 10:53] LABS: INR 4.78
[2018-10-14 10:54] LABS: PARTIAL THROMBOPLASTIN TIME 37.2 seconds (23.8-35.5)
[2018-10-14 10:57] LABS: PROTHROMBIN TIME 47.9 seconds (11.9-14.5)
[2018-10-14 10:59] LABS: ACETAMINOPHEN 4 ug/mL (10-30)
[2018-10-14 11:09] LABS: DIGOXIN < 0.30 ng/mL (0.8-2.0)
[2018-10-14] MEDS ORDERED: SODIUM BICARBONATE 8.4% INJ 50 ML SYR IV STA (11:21)
[2018-10-14] MEDS ORDERED: CALCIUM GLUCONATE 10% INJ 4.65 MEQ in SODIUM CHLORIDE 0.9% 50ML 50 ML IV ONE (11:30)
[2018-10-14] MEDS ORDERED: SODIUM CHLORIDE 0.9% 1000ML 1,000 ML IV STA ×2 (11:32→15:07)
[2018-10-14] MEDS ORDERED: VANCOMYCIN 1GM/NS 250 ML 250 ML IV ONE (11:45)
[2018-10-14] MEDS ORDERED: LACTULOSE SYRUP 20 GM/30 ML UDC PO ONE (11:45)
[2018-10-14] MEDS ORDERED: PIPERACILLIN/TAZO 2.25 GM 50 ML IV ONE (11:45)
--- NOTE | 2018-10-14 12:30 | Diagnostic Imaging Report ---
EXAM: Liver Ultrasound INDICATION: Right upper quadrant pain. Elevated transaminase. ^RUQ Pain, severe transaminitis COMPARISON: None. TECHNIQUE: Transverse and longitudinal images of the liver were obtained. FINDINGS: Liver: Size: 16.4 cm in the right midclavicular line, normal Appearance: Increased echogenicity, smooth contour Mass: No focal masses Gallbladder: Normal appearance. No gallstones or sludge is seen. The gallbladder wall measures 0.4 cm. The sonographic Cortez sign is negative. Bile Ducts: Intrahepatic Ducts: No dilatation Extrahepatic Ducts: The common bile duct measures 0.5 cm. The main portal vein is normal in appearance measuring 1.3 cm. The right kidney is normal in appearance measuring 11.5 cm. The pancreas and abdominal aorta are not well seen due to overlying bowel gas. The inferior vena cava is unremarkable. Free Fluid: No ascites or pleural effusion IMPRESSION: The pancreas and abdominal aorta are not well seen due to overlying bowel gas. Increased hepatic echogenicity could be due to fatty infiltration. Otherwise unremarkable right upper quadrant/liver ultrasound. Signed by: Dr. Ron Ragsdale M.D. on 10/14/2018 12:27 PM
[2018-10-14 12:42] LABS: ABG HCO3 19 mmol/L (23-28); ABG PCO2 34 mmHg (41-51); ABG PH 7.36 (7.31-7.41); ABG PO2 74 mmHg (80-105)
--- NOTE | 2018-10-14 12:58 | NUR ---
ANGY GERBER ON PHONE WITH [facility]3]IST.
[2018-10-14] MEDS ORDERED: DEXTROSE 5%/0.9% SOD CHL 1,000 ML IV ONE (13:30)
--- NOTE | 2018-10-14 13:34 | NUR ---
PATIENT ACCEPTED TO [facility], NO ROOMS AVAILABE; STATUS ON HOLD
[2018-10-14] MEDS ORDERED: FENTANYL CITRATE/PF 100MCG/2 ML INJ IV ONE (14:00)
[2018-10-14 14:48] LABS: CLARITY,URINE CLEAR (CLEAR); COLOR,URINE YELLOW (YELLOW); LEUKOCYTE ESTERASE ,URINE NEGATIVE (NEGATIVE); NITRITE,URINE NEGATIVE (NEGATIVE); PROTEIN,URINE DIPSTICK TRACE (NEGATIVE)
[2018-10-14 14:49] LABS: BILIRUBIN,URINE NEGATIVE (NEGATIVE); KETONES,URINE NEGATIVE (NEGATIVE); URINE UROBILINOGEN 1 mg/dL (0.2 - 1)
[2018-10-14 14:50] LABS: AMPHETAMINES SCREEN,URINE POSITIVE (NEGATIVE); BENZODIAZEPINES SCREEN,URINE NEGATIVE (NEGATIVE); PHENCYCLIDINE SCREEN,URINE NEGATIVE (NEGATIVE)
[2018-10-14 14:55] LABS: MAGNESIUM 1.9 MG/DL (1.3-2.1); PHOSPHORUS 5.8 MG/DL (2.3-4.7)
[2018-10-14 14:57] LABS: ALBUMIN/GLOBULIN RATIO 1.2 (0.8-2.0); ANION GAP 24.1 mmol/L (8-16); CALCIUM 8.5 mg/dL (8.4-10.2); CREATININE, SERUM 2.44 mg/dL (0.72-1.25); POTASSIUM 5.1 mmol/L (3.5-5.1)
[2018-10-14 14:58] LABS: AMORPHOUS SEDIMENT,URINE FEW (FEW); HYALINE CASTS >15 (0-1); WBC,URINE (MAN) 0-5 /HPF (0-5)
--- NOTE | 2018-10-14 17:41 | NUR ---
called report to receiving facility, house wirer called EMS for transport
== END 2018-10-14 19:55 | disposition short-term general hospital (02) ==
LOC: ER 08:39
DX: R07.89 Other chest pain (principal); R65.20 Severe sepsis without septic shock; N17.9 Acute kidney failure, unspecified
CPT/HCPCS: 36415; 36600; 71046; 76705; 80053; 80162; 80307; 80329; 81001; 82140; 82805; 82977; 83605; 83735; 83880; 84100; 84484; 85025; 85384; 85610; 85730; 86644; 86645; 87040; 87400; 93005; 99285; J0610; J1885; J2405; J2543; J3370; J7030; J7042